=== PATIENT | male | born 1945 | race Caucasian/White ===

== ENCOUNTER → 2019-02-19 17:09 | Outpatient (CLI) | payer OTHER, SELFPAY ==
[2019-02-19 17:43] LABS: Absolute Lymphocyte Count 1.35 X10^3/ul (0.83-4.51); Absolute Neutrophil Count 5.8 X10^3/uL (2.0-7.7); Basophil# 0.02 X10^3/uL; Basophil% 0.2 % (0-1); Eosinophil# 0.32 X10^3/uL; Eosinophils% 3.8 % (0-5); Hematocrit 46.1 % (40-54); Lymphocyte # 1.35 X10^3/ul (4.0); Lymphocyte % 15.8 % (19-41); Mean Corp Hgb Conc 32.5 g/gl (32-36); Mean Corpuscular Hgb 29.6 pg (27.0-32.0); Mean Corpuscular Volume 90.9 fL (80-94); Mean Platelet Vol. 10.5 fl (6.2-12.0); Monocyte% 11.7 % (0-10); Neutrophil # 5.81 X10^3/uL (2.7-7.7); Neutrophil % 68.3 % (47-70); Platelet Count 276 K/mm3 (150-450); RBC Distribution Width CV 13.4 % (11.6-14.6); Red Blood Count 5.07 M/mm3 (4.6-6.2); White Blood Count 8.5 K/mm3 (4.4-11.0)
[2019-02-19 17:45] LABS: POSITIVE COUNT NO; POSITIVE DIFFERENTIAL NO; POSITIVE MORPHOLOGY NO
[2019-02-19 18:03] LABS: Vitamin D,25 Hydroxy 17.2 ng/mL (29.95-100.01)
[2019-02-19 18:13] LABS: ALB/GLOB Ratio 0.8 RATIO (0.9-2.4); AST(SGOT) 13 U/L (15-37); Alanine Aminotransfer ALT/SGPT 31 U/L (16-61); Albumin, Serum 3.5 g/dL (3.2-5.0); Alkaline Phosphatase 93 U/L (45-117); Anion Gap 6 (5-15); BUN 15 mg/dL (7-18); BUN/Creat Ratio 21.3 RATIO (10-20); Calcium,Total 9.4 mg/dL (8.5-10.1); Chloride 103 mmol/L (98-107); EST Glomerular Filtration Rate 116 mL/min (>60); Est Glom Filt Rate - Afr Amer 141 mL/min (>60); Globulin 4.2 g/dL (2.2-4.2); Glucose 82 mg/dL (74-106); Potassium 4.2 mmol/L (3.5-5.1); Protein, Total 7.7 g/dL (6.4-8.2); Sodium Level 138 mmol/L (136-145); Thyroid Stim Hormone (TSH) 1.63 uIU/mL (0.358-3.74)
== END ==
PROVIDERS: Visit Provider Family Medicine Geriatric Medicine
DX: I10 Essential (primary) hypertension (principal); E55.9 Vitamin D deficiency, unspecified
CPT/HCPCS: 36415; 80053; 82306; 84443; 85025

== ENCOUNTER → 2019-05-25 | Outpatient (CLI) | payer OTHER, SELFPAY ==
[2015-09-09 20:44] VITALS: BMI 27.0
[2019-05-25 17:43] LABS: Absolute Lymphocyte Count 1.41 X10^3/ul (0.83-4.51); Absolute Neutrophil Count 5.1 X10^3/uL (2.0-7.7); Basophil# 0.03 X10^3/uL; Basophil% 0.4 % (0-1); Eosinophil# 0.25 X10^3/uL; Eosinophils% 3.3 % (0-5); Lymphocyte # 1.41 X10^3/ul (4.0); Lymphocyte % 18.7 % (19-41); Mean Corp Hgb Conc 32.6 g/gl (32-36); Mean Corpuscular Hgb 29.8 pg (27.0-32.0); Mean Corpuscular Volume 91.3 fL (80-94); Mean Platelet Vol. 10.7 fl (6.2-12.0); Monocyte# 0.69 X10^3/uL; Monocyte% 9.2 % (0-10); Neutrophil # 5.14 X10^3/uL (2.7-7.7); Neutrophil % 68.3 % (47-70); Platelet Count 246 K/mm3 (150-450); RBC Distribution Width CV 13.7 % (11.6-14.6); RBC Distribution Width SD 44.8 fl (35.1-43.9); Red Blood Count 5.04 M/mm3 (4.6-6.2); White Blood Count 7.5 K/mm3 (4.4-11.0)
[2019-05-25 17:46] LABS: POSITIVE COUNT NO; POSITIVE DIFFERENTIAL NO; POSITIVE MORPHOLOGY NO
[2019-05-25 18:01] LABS: Vitamin D,25 Hydroxy 16.3 ng/mL (29.95-100.01)
[2019-05-25 18:02] LABS: ALB/GLOB Ratio 0.9 RATIO (0.9-2.4); AST(SGOT) 16 U/L (15-37); Alanine Aminotransfer ALT/SGPT 32 U/L (16-61); Albumin, Serum 3.6 g/dL (3.2-5.0); Alkaline Phosphatase 92 U/L (45-117); Anion Gap 4 (5-15); BUN 12 mg/dL (7-18); BUN/Creat Ratio 18.2 RATIO (10-20); Calcium,Total 8.9 mg/dL (8.5-10.1); Chloride 103 mmol/L (98-107); Creatinine, Serum 0.66 mg/dL (0.70-1.30); EST Glomerular Filtration Rate 125 mL/min (>60); Est Glom Filt Rate - Afr Amer 151 mL/min (>60); Glucose 87 mg/dL (74-106); Potassium 4.1 mmol/L (3.5-5.1); Protein, Total 7.6 g/dL (6.4-8.2); Sodium Level 136 mmol/L (136-145); Thyroid Stim Hormone (TSH) 1.21 uIU/mL (0.358-3.74)
== END | disposition home or self-care (01) ==
LOC: POLAB3 13:58
PROVIDERS: Visit Provider Family Medicine Geriatric Medicine
DX: I10 Essential (primary) hypertension (principal); E55.9 Vitamin D deficiency, unspecified
CPT/HCPCS: 36415; 80053; 82306; 84443; 85025

== ENCOUNTER → 2019-08-21 | Outpatient (CLI) | payer OTHER, SELFPAY ==
[2015-09-09 20:44] VITALS: BMI 27.0
[2019-08-21 12:25] LABS: Absolute Lymphocyte Count 1.12 X10^3/uL (0.83-4.51); Absolute Neutrophil Count 6.1 X10^3/uL (2.0-7.7); Basophil# 0.05 X10^3/uL; Basophil% 0.6 % (0-1); Eosinophil# 0.21 X10^3/uL; Eosinophils% 2.6 % (0-5); Hematocrit 45.2 % (40-54); Hemoglobin 14.3 g/dL (13.0-16.5); Lymphocyte # 1.12 X10^3/ul (4.0); Lymphocyte % 13.6 % (19-41); Mean Corp Hgb Conc 31.6 g/dL (32-36); Mean Corpuscular Hgb 30.4 pg (27.0-32.0); Mean Corpuscular Volume 96.2 fL (80-94); Mean Platelet Vol. 10.5 fl (6.2-12.0); Monocyte# 0.77 X10^3/uL; Monocyte% 9.4 % (0-10); NRBC Flagged by Analyzer 0 % (0-5); Neutrophil # 6.05 X10^3/uL (2.7-7.7); Neutrophil % 73.4 % (47-70); Platelet Count 272 K/mm3 (150-450); RBC Distribution Width CV 13.1 % (11.6-14.6); RBC Distribution Width SD 46.4 fl (35.1-43.9); White Blood Count 8.2 K/mm3 (4.4-11.0)
[2019-08-21 12:43] LABS: Vitamin D,25 Hydroxy 22.8 ng/mL (29.95-100.01)
[2019-08-21 12:54] LABS: ALB/GLOB Ratio 0.9 RATIO (0.9-2.4); AST(SGOT) 15 U/L (15-37); Alanine Aminotransfer ALT/SGPT 29 U/L (16-61); Albumin, Serum 3.6 g/dL (3.2-5.0); Alkaline Phosphatase 97 U/L (45-117); Anion Gap 5 (5-15); BUN 12 mg/dL (7-18); BUN/Creat Ratio 14.6 RATIO (10-20); Calcium,Total 8.8 mg/dL (8.5-10.1); Chloride 105 mmol/L (98-107); Creatinine, Serum 0.82 mg/dL (0.70-1.30); EST Glomerular Filtration Rate 97 mL/min (>60); Est Glom Filt Rate - Afr Amer 117 mL/min (>60); Globulin 3.8 g/dL (2.2-4.2); Glucose 104 mg/dL (74-106); Potassium 4.6 mmol/L (3.5-5.1); Protein, Total 7.4 g/dL (6.4-8.2); Sodium Level 140 mmol/L (136-145); Thyroid Stim Hormone (TSH) 1.25 uIU/mL (0.358-3.74)
== END | disposition home or self-care (01) ==
LOC: POLAB3 10:11
PROVIDERS: Visit Provider Family Medicine Geriatric Medicine
DX: E55.9 Vitamin D deficiency, unspecified (principal); I10 Essential (primary) hypertension
CPT/HCPCS: 36415; 80053; 82306; 84443; 85025

== ENCOUNTER → 2019-11-19 10:23 | Outpatient (CLI) | payer OTHER, SELFPAY ==
[2019-11-19 12:36] LABS: Absolute Lymphocyte Count 1.11 X10^3/uL (0.83-4.51); Basophil# 0.07 X10^3/uL; Basophil% 0.8 % (0-1); Eosinophil# 0.29 X10^3/uL; Eosinophils% 3.5 % (0-5); Hematocrit 47.7 % (40-54); Hemoglobin 15.2 g/dL (13.0-16.5); Lymphocyte # 1.11 X10^3/ul (4.0); Lymphocyte % 13.3 % (19-41); Mean Corp Hgb Conc 31.9 g/dL (32-36); Mean Corpuscular Hgb 30.1 pg (27.0-32.0); Mean Corpuscular Volume 94.5 fL (80-94); Mean Platelet Vol. 10.4 fl (6.2-12.0); Monocyte# 0.84 X10^3/uL; NRBC Flagged by Analyzer 0 % (0-5); Neutrophil # 6.04 X10^3/uL (2.7-7.7); Neutrophil % 72.2 % (47-70); Platelet Count 260 K/mm3 (150-450); RBC Distribution Width CV 12.6 % (11.6-14.6); RBC Distribution Width SD 43.5 fl (35.1-43.9); Red Blood Count 5.05 M/mm3 (4.6-6.2); White Blood Count 8.4 K/mm3 (4.4-11.0)
[2019-11-19 12:54] LABS: Vitamin D,25 Hydroxy 18.8 ng/mL (29.95-100.01)
[2019-11-19 13:04] LABS: ALB/GLOB Ratio 0.8 RATIO (0.9-2.4); AST(SGOT) 18 U/L (15-37); Alanine Aminotransfer ALT/SGPT 31 U/L (16-61); Albumin, Serum 3.6 g/dL (3.2-5.0); Alkaline Phosphatase 100 U/L (45-117); Anion Gap 2 (5-15); BUN 12 mg/dL (7-18); BUN/Creat Ratio 16.4 RATIO (10-20); Calcium,Total 8.9 mg/dL (8.5-10.1); Chloride 100 mmol/L (98-107); Creatinine, Serum 0.73 mg/dL (0.70-1.30); EST Glomerular Filtration Rate 111 mL/min (>60); Est Glom Filt Rate - Afr Amer 134 mL/min (>60); Globulin 4.3 g/dL (2.2-4.2); Glucose 98 mg/dL (74-106); Potassium 4.4 mmol/L (3.5-5.1); Protein, Total 7.9 g/dL (6.4-8.2); Sodium Level 135 mmol/L (136-145); Thyroid Stim Hormone (TSH) 1.31 uIU/mL (0.358-3.74)
== END ==
PROVIDERS: Visit Provider Family Medicine Geriatric Medicine
DX: I10 Essential (primary) hypertension (principal); E55.9 Vitamin D deficiency, unspecified
CPT/HCPCS: 36415; 80053; 82306; 84443; 85025

== ENCOUNTER → 2020-03-17 18:15 | Outpatient (CLI) | payer OTHER, SELFPAY ==
[2020-03-17 20:42] LABS: M R Staph aureus DNA By PCR Negative (Negative); Probe Check PASS; Specimen Processing Control PASS; Staph aureus DNA By PCR NEGATIVE (Negative)
== END ==
PROVIDERS: PCP Family Medicine Geriatric Medicine; Referring Provider Family Medicine Geriatric Medicine; Visit Provider Family Medicine Geriatric Medicine
DX: B95.62 Methicillin resistant Staphylococcus aureus infection as the cause of diseases classified elsewhere (principal)
CPT/HCPCS: 87070; 87205; 87640

== ENCOUNTER → 2020-04-04 09:53 | Outpatient (CLI) | payer OTHER, SELFPAY ==
--- NOTE | 2020-04-04 10:13 | US_ITS ---
STUDY: ABDOMINAL ULTRASOUND-PERIUMBILICAL REGION REASON FOR VISIT: Male, 74 years old ABDOMINAL ABSCESS INFERIOR TO UMBILICUS TECHNIQUE: Ultrasound evaluation of the right upper quadrant was performed with real-time and static schaeffer-scale imaging. TECHNICAL QUALITY: Adequate. COMPARISON: None. FINDINGS: There is thickening of the subcutaneous fat in the periumbilical region suggesting cellulitis. There is no abnormal fluid collection to suggest an abscess. US/Abdomen Limited IMPRESSION: There is thickening of the subcutaneous fat in the periumbilical region suggesting cellulitis. There is no abnormal fluid collection to suggest an abscess. Electronically Signed: Xiang Ware, at 12:19 EDT Tel , Service support ,
[2020-04-04 12:53] LABS: Erythrocyte Sedimentation Rate 18 mm/hr (0-20)
[2020-04-04 12:55] LABS: Absolute Lymphocyte Count 1.05 X10^3/uL (0.83-4.51); Absolute Neutrophil Count 5.8 X10^3/uL (2.0-7.7); Basophil# 0.06 X10^3/uL; Basophil% 0.8 % (0-1); Eosinophil# 0.19 X10^3/uL; Eosinophils% 2.5 % (0-5); Hematocrit 46.7 % (40-54); Hemoglobin 14.8 g/dL (13.0-16.5); Lymphocyte # 1.05 X10^3/ul (4.0); Lymphocyte % 13.5 % (19-41); Mean Corp Hgb Conc 31.7 g/dL (32-36); Mean Corpuscular Hgb 30.6 pg (27.0-32.0); Mean Corpuscular Volume 96.5 fL (80-94); Mean Platelet Vol. 10.2 fl (6.2-12.0); Monocyte# 0.62 X10^3/uL; NRBC Flagged by Analyzer 0 % (0-5); Neutrophil % 74.8 % (47-70); Platelet Count 298 K/mm3 (150-450); RBC Distribution Width CV 13.2 % (11.6-14.6); Red Blood Count 4.84 M/mm3 (4.6-6.2); White Blood Count 7.8 K/mm3 (4.4-11.0)
[2020-04-04 13:05] LABS: Anion Gap 8 (5-15); BUN 14 mg/dL (7-18); BUN/Creat Ratio 17.5 RATIO (10-20); Calcium,Total 9.4 mg/dL (8.5-10.1); Chloride 104 mmol/L (98-107); EST Glomerular Filtration Rate 100 mL/min (>60); Est Glom Filt Rate - Afr Amer 121 mL/min (>60); Glucose 98 mg/dL (74-106); Potassium 4.2 mmol/L (3.5-5.1); Sodium Level 138 mmol/L (136-145)
== END ==
PROVIDERS: PCP Family Medicine Geriatric Medicine; Visit Provider Family Medicine Geriatric Medicine
DX: L03.90 Cellulitis, unspecified (principal)
CPT/HCPCS: 36415; 76705; 80048; 85025; 85652; 86140

== ENCOUNTER → 2020-07-27 15:53 | Outpatient (CLI) | payer OTHER, SELFPAY ==
[2020-07-27 15:44] VITALS: BMI 29.4
[2020-07-27 16:37] LABS: Absolute Lymphocyte Count 1.45 X10^3/uL (0.83-4.51); Absolute Neutrophil Count 5.2 X10^3/uL (2.0-7.7); Basophil# 0.07 X10^3/uL; Basophil% 0.9 % (0-1); Eosinophil# 0.38 X10^3/uL; Eosinophils% 4.7 % (0-5); Hematocrit 44.2 % (40-54); Lymphocyte # 1.45 X10^3/ul (4.0); Lymphocyte % 17.9 % (19-41); Mean Corp Hgb Conc 31.7 g/dL (32-36); Mean Corpuscular Hgb 30.3 pg (27.0-32.0); Mean Corpuscular Volume 95.7 fL (80-94); Mean Platelet Vol. 10.1 fl (6.2-12.0); Monocyte# 0.98 X10^3/uL; Monocyte% 12.1 % (0-10); NRBC Flagged by Analyzer 0 % (0-5); Neutrophil # 5.23 X10^3/uL (2.7-7.7); Neutrophil % 64.3 % (47-70); Platelet Count 278 K/mm3 (150-450); RBC Distribution Width CV 13.5 % (11.6-14.6); RBC Distribution Width SD 47.7 fl (35.1-43.9); Red Blood Count 4.62 M/mm3 (4.6-6.2); White Blood Count 8.1 K/mm3 (4.4-11.0)
[2020-07-27 17:03] LABS: Anion Gap 4 (5-15); BUN 15 mg/dL (7-18); BUN/Creat Ratio 19.6 RATIO (10-20); Calcium,Total 9.5 mg/dL (8.5-10.1); Chloride 104 mmol/L (98-107); Creatinine, Serum 0.76 mg/dL (0.70-1.30); EST Glomerular Filtration Rate 105 mL/min (>60); Est Glom Filt Rate - Afr Amer 127 mL/min (>60); Glucose 97 mg/dL (74-106); Potassium 4.1 mmol/L (3.5-5.1); Sodium Level 138 mmol/L (136-145)
== END ==
PROVIDERS: PCP Family Medicine Geriatric Medicine; Referring Provider Internal Medicine Cardiovascular Disease; Visit Provider Internal Medicine Cardiovascular Disease
DX: I25.10 Atherosclerotic heart disease of native coronary artery without angina pectoris (principal)
CPT/HCPCS: 36415; 80048; 85025

== ENCOUNTER 2020-08-01 08:51 | Day surgery (SDC) | payer SELFPAY, OTHER ==
[2020-07-27 15:44] VITALS: BMI 29.4
[2020-07-28 11:24] VITALS: BMI 29.2
[2020-08-01] VITALS (14 sets, daily range): BP systolic 125–183; BP diastolic 64–97; PULSE 71–86; RESP 11–17; TEMP 37–37.1; O2SAT 95–98; BMI 29.3; BMI 29.4
--- NOTE | 2020-08-01 10:45 | EKG12_ITS ---
Test Reason : POST PCI Blood Pressure : / mmHG Vent. Rate : 079 BPM Atrial Rate : 079 BPM P-R Int : 186 ms QRS Dur : 092 ms QT Int : 420 ms P-R-T Axes : 068 060 071 degrees QTc Int : 481 ms Sinus rhythm with frequent Premature ventricular complexes in a pattern of bigeminy Nonspecific ST abnormality Prolonged QT Abnormal ECG No previous ECGs available Confirmed by NATALIIA BYERS, BARRY ([id number]), marketing editor ANDREW RAMON ([id number]) on 08/03/2020 11:38:20 AM Referred By: Barry Roberson Confirmed By:BARRY ROBERSON MD
--- NOTE | 2020-08-01 10:55 | CL.I_ITS ---
Patient Name: GAVINO NICHOLS Study Date: 08/01/2020 Performing: Orlando Fuller MD Ht: 70 inches 178 cm : 1945 Wt: 205.3 lbs 93 kg Age: 75 Gender: male BSA: 2.11 PROCEDURE(S) PERFORMED [id number] W OR WO PTCA, SINGLE CORONARY ARTERY CLINICAL PROFILE AND CO-MORBIDITIES Indications: Suspected CAD Heart Failure: None CONCLUSIONS Successful NANCY to ostial OM1 RECOMMENDATIONS Follow up with Dr. Karol CHAPIN Indefinitley Plavix for at least 12 months DESCRIPTION OF PROCEDURE The patient arrived to the procedure lab. The risks and benefits of the procedure as well as a full d escription of our services here and current unavailability of surgical backup were fully explained to the patient and/or their significant other prior to the catheterization. The Timeout was completed, verifying the correct patient and procedure. The patient's procedural site was prepped and draped in the usual fashion. Local anesthetic was given subcutaneously to right radial region with Lidocaine 2% Using a modified Seldinger technique,arterial access was obtained via the right radial artery, a 6Fr sheath was inserted. Left Coronary Artery selective angiography was performed in multiple views usin g a 5 Fr. 4.0 [place] catheter. Right Coronary Artery selective angiography was then performed in multi ple views using a 5 Fr. 4.0 [place] catheter. Left Ventriculography was performed in URENA projection usi ng a 5 Fr. Pigtail catheter. LV to AO pullback pressures were then recorded.The images were reviewed and options discussed. A decision was then made to proceed with an Intervention, IVUS o r other adjunct procedure. XB 3.0 Guide catheter was inserted and engaged into the LCA. Angiogram performed pre balloon dila tation. BMW Guide wire was advanced to the 1st OM. 2.0x12 emerge Balloon catheter was advanced across lesion in the first obtuse marginal, ostial. PTCA balloon inflated at 8 atms for 43 secs. Angiogram performed post balloon dilatation. 2.5 x 12 Synergy Drug Eluting stent was advanced across the lesion in the first obtuse marginal, ostial. 2.5 x 8 NC Euphora Balloon catheter was inserted post stent. A ngiogram performed post stent deployment. The arterial sheath was pulled and a TR Band was applied for hemostasis INTERVENTION INFORMATION LESION SITE: 1st OM (Ostial) Lesion Complexity: High/C, chronic total occlusion: No, lesion at bifurcation: Yes, thrombus present: No, lesion length: 8 mm, culprit lesion: Yes, Previously treated lesion: No Pre Stenosis: 90 % Pre intervention MATILDE flow: 3 PROCEDURE: Drug Eluting Stent with pre and post dilatation Post Stenosis: 0 % Post intervention MATILDE flow: 3 Lesion Devices: Cardinal 6 Fr XB3.0 100cm Guide Catheter Matthews .014 BMW [place] Straight 190cm Bogdan Sci EMERGE MR 2.00x12 BALLOON Bogdan Sci Synergy MR NANCY 2.50x12 Medtronic NC EUPHORA RX 2.5x08 BALLOON COMPLICATIONS No Complications PROCEDURE MEDICATIONS Fentanyl 50 mcg IV Versed 1 mg IV Oxygen: 2 L/min via nasal cannula Heparin diluted in 23cc Heparinized saline. Patient given 10cc IA of this solution. 08/01/2020 09:44: 30 Heparin 6000 unit(s) IV 08/01/2020 10:03:03 Verapamil 2.5mg, Ntg 100mcgs, 2000 units of Heparin diluted in 23cc Heparinized saline. Patient give n 10cc IA of this solution. 08/01/2020 09:44:30 SUMMARY OF HEMODYNAMIC DATA Time AIR REST ECG 09:12:55 AO 125/58 (83) SA 09:45:05 LV 113/0, 5 09:53:27 LV 102/4, 17 09:53:41 LV 104/2, 6 09:54:13 LVp 109/2, 11 09:54:19 AOp 119/65 (87) 09:54:24 AO 119/60 (84) 09:54:25 Signed By Orlando Fuller MD On 08/01/2020 10:53:51 Orlando Fuller MD
[2020-08-01] MEDS: 0.9% Normal Saline 1,000 ML 100 ML IV (11:00)
--- NOTE | 2020-08-01 12:40 | DCINST_ITS ---
Discharge Diet: Low fat/ Low Cholesterol Discharge Activity: Return to Normal Activity May shower in (days): 1 - No tub baths for 5 days May resume sexual activity in: 1-2 weeks Lifting Restrictions: Do not lift anything greater than 10 pounds for 3 days Call your doctor if your incision/area has: Continuous Slow Oozing, Sudden Increased Bleeding, Increased Pain/ Swelling, Increased Redness, Foul Smelling Discharge, Swelling at the incision site Call your doctor if you observe: Fever of 101 or Higher, Shortness of breath, Chest pain Remove Dressing in (days):: 1 Cleanse incision/area with: Soap & Water Allergies/Adverse Reactions: Allergies No Known Allergies Allergy (Verified 07/27/20 14:38) Medications to take at Discharge Lisinopril [Zestril] 10 mg PO DAILY 09/09/15 carvedilol 6.25 mg tablet 6.25 mg PO BID 07/27/20 citalopram 20 mg tablet 20 mg PO DAILY 07/27/20 clopidogrel 75 mg tablet 75 mg PO DAILY 07/27/20 memantine 10 mg tablet 10 mg PO BID tab 07/27/20 vit C,E,zinc,Qy-dtvhb-2-lutein-zeaxanthin 250 mg-2.5 mg-0.5 mg capsule 1 cap PO DAILY 07/27/20 Aspirin 81 mg PO DAILY 07/28/20 Primary Care Physician: Colin Crain Chi, MD [Primary Care Provider] - Test Results: Test results from this visit will be discussed in further detail at your follow- up appointment, if applicable. Please Follow Up With: Dr. Roberson When: 08/19/2020 at 9:15 AM Proposed Discharge Date: 08/02/20 Cardiac Rehabilitation Info Cardiac Rehabilitation Program Information: Cardiac Rehabilitation is important for patients like you who are recovering from a heart problem. Cardiac rehabilitation programs are recognized as integral to the continued care of the patient with coronary heart disease. The cardiac rehabilitation program is designed to optimize a patient's physical, psychological, and social functioning. Health resident care assistant work in cardiac rehabilitation programs and assist you with getting the treatments you need to get stronger and healthier - like exercise, healthy eating habits, and medications. Cardiac rehabilitation has been show to help people with heart problems live longer and have better life enjoyment than people who do not go to cardiac rehabilitation. Please contact the Cardiac Rehabilitation Program at [facility] at in two weeks if you have not heard from them.
--- NOTE | 2020-08-01 13:17 | CRPHASE1 ---
Patient Communication Former Patient:: Phase I PHII Cardiac Rehab Discussed with Patient:: Yes Guide to Cardiac Rehab Given to Patient:: Yes Cardiac Rehab Facility Choice List Given to Patient:: Yes Choice Program [facility] CR PHII:: Communication Given to CR Choice Program Other:: Communication Given to CR Refer Phase II Cardiac Rehab:: Yes Sessions:: 36 sessions - 3 days/wk, 12 weeks Choice Letter Given to Patient:: Yes Guide to Cardiac Rehab Given by ICU Staff Prior to Discharge: Yes Risk Factors/Lifestyle Smoking Status: Former smoker Hx Hypertension: Yes Hx Diabetes Mellitus Type 1: No Hx Diabetes Mellitus Type 2: No Hx Metabolic Disorders: No Hx Dyslipidemia: Yes Hx Obesity: No Post-Menopausal: No ETOH: No Caffeine: No Substance Abuse: No Family History: Family History (Last Reviewed 07/27/20 @ 15:[address] Barry Roberson MD) Brother Hypertension Cardiac Rehabilitation Info Cardiac Rehabilitation Program Information: Cardiac Rehabilitation is important for patients like you who are recovering from a heart problem. Cardiac rehabilitation programs are recognized as integral to the continued care of the patient with coronary heart disease. The cardiac rehabilitation program is designed to optimize a patient's physical, psychological, and social functioning. Health palliative care coordinator work in cardiac rehabilitation programs and assist you with getting the treatments you need to get stronger and healthier - like exercise, healthy eating habits, and medications. Cardiac rehabilitation has been show to help people with heart problems live longer and have better life enjoyment than people who do not go to cardiac rehabilitation. Please contact the Cardiac Rehabilitation Program at [facility] at in two weeks if you have not heard from them.
--- NOTE | 2020-08-01 13:19 | CRPH1.INSTRU ---
General Education CAD and cardiac anatomy and function:: Patient communicates acknowledgment, Family communicates acknowledgment Explanation of diagnoses and procedures:: Patient communicates acknowledgment, Family communicates acknowledgment Sign/Symptoms of CT:: Patient communicates acknowledgment, Family communicates acknowledgment Antiplatelet therapy: Patient communicates acknowledgment, Family communicates acknowledgment Proper use of NTG-SL: Patient communicates acknowledgment, Family communicates acknowledgment Emergency procedures and activation of EMS: Patient communicates acknowledgment, Family communicates acknowledgment Compliance of all prescribed medications: Patient communicates acknowledgment, Family communicates acknowledgment Smoking Recommendations Include:: Previous smoker; encourage continued cessation Dyslipidemia Patient Dyslipidemia Risk Factors Are:: Total Cholesterol, Triglycerides, HDL, LDL Recommendations Include:: Lipid profile provided, Reviewed NCEP/ATP guidelines, Therapeutic Lifestyle Change dietary guidelines Dyslipidemia Response Code:: Patient communicates acknowledgment, Family communicates acknowledgment Hypertension Recommendations Include:: Maintain BP <130/85, DASH dietary guidelines, Decrease/maintain normal body weight, Moderation of ETOH Hypertension:: Patient communicates acknowledgment, Family communicates acknowledgment Diabetes Patient Diabetes Risk Factors Are:: No documented hx of diabetes Sedentary Patient Sedentary Risk Factors Are:: Lack of regular exercise Recommendations Include:: Aerobic exercise 5-7 times/week for 20-30 minutes continuously, Benefits of regular exercise, Discussed home walking program, Monitored Outpatient Cardiac Rehab Sedentary Response Code:: Patient communicates acknowledgment, Family communicates acknowledgment Stress Patient Stress Risk Factors Are:: Patient denies stress as a risk factor
[2020-08-01] MEDS: amLODIPine 10 MG Tablet PO (18:49)
--- NOTE | 2020-08-01 19:52 | NURSING ---
bag of NS was not running when this RN came on to shift at 1900. unclear when NS was stopped by dayshift RN.
[2020-08-01] MEDS: Memantine Hydrochloride 10 MG Tablet PO (21:20)
[2020-08-01] MEDS: Carvedilol 6.25 MG Tablet PO (21:20)
[2020-08-02 03:00] VITALS: PULSE 73
[2020-08-02 03:15] VITALS: BP 137/84; PULSE 82; RESP 16; TEMP 36.8; O2SAT 96
[2020-08-02 06:51] LABS: Hematocrit 43.8 % (40-54); Hemoglobin 14.1 g/dL (13.0-16.5); Mean Corp Hgb Conc 32.2 g/dL (32-36); Mean Corpuscular Hgb 30.1 pg (27.0-32.0); Mean Corpuscular Volume 93.4 fL (80-94); Mean Platelet Vol. 9.8 fl (6.2-12.0); Platelet Count 240 K/mm3 (150-450); RBC Distribution Width CV 13.4 % (11.6-14.6); RBC Distribution Width SD 45.8 fl (35.1-43.9); Red Blood Count 4.69 M/mm3 (4.6-6.2); White Blood Count 8.3 K/mm3 (4.4-11.0)
[2020-08-02 07:17] LABS: ALB/GLOB Ratio 0.8 RATIO (0.9-2.4); AST(SGOT) 17 U/L (15-37); Alanine Aminotransfer ALT/SGPT 29 U/L (16-61); Albumin, Serum 3.4 g/dL (3.2-5.0); Alkaline Phosphatase 82 U/L (45-117); Anion Gap 5 (5-15); BUN 10 mg/dL (7-18); BUN/Creat Ratio 16.8 RATIO (10-20); Chloride 103 mmol/L (98-107); EST Glomerular Filtration Rate 141 mL/min (>60); Est Glom Filt Rate - Afr Amer 170 mL/min (>60); Estimated Creatinine Clearance 64.89 ml/min; Glucose 112 mg/dL (74-106); Potassium 3.9 mmol/L (3.5-5.1); Protein, Total 7.4 g/dL (6.4-8.2); Sodium Level 137 mmol/L (136-145)
--- NOTE | 2020-08-02 07:28 | PCM.PN.CARD ---
Subjectve: Patient seen and evaluated. Appears to be doing well with no complaints Objective: Vital Signs Temp Pulse Resp BP Pulse Ox 98.2 F 82 16 137/84 H 96 08/02/20 03:15 08/02/20 03:15 08/02/20 03:15 08/02/20 03:15 08/02/20 03:15 Oxygen Delivery Method Room Air Weight: 204 lb 12.8 oz Body Mass Index (BMI) 29.3 Intake and Output for Last 24 Hours 07/31/20 08/01/20 08/02/20 23:59 23:59 23:59 Intake Total 1270 / 1270 100 / 100 Output Total 250 / 250 Balance 1020 / 1020 100 / 100 General: Awake, Alert, Oriented x 3 HEENT: PERRL, EOMI, Sclera Non Icteric Neck: Supple, Good ROM, No Lymph Node Enlargement Lungs: Clear to auscultation Cardiovascular: Regular Rhythm, Normal S1, Normal S2, No Murmurs, No Rubs, No Gallops Vascular: No Carotid Bruits, Normal Femoral Pulses, Normal Radial Pulses, Normal Dorsalis Pedal Pulse, Normal Posterior Tibial Pulses Abdomen: Bowel Sounds Present, Soft, Non Tender, No HSM, No Organomegaly Extremities: No Cyanosis, No Clubbing, No edema Skin: No Rashes Lymphatic: No Lymph Node Enlargement Neurological: No Focal Motor or Sensory Deficit Psych/Mental Status: Appropriate 08/02/20 06:30: WBC 8.3, RBC 4.69, Hgb 14.1, Hct 43.8, MCV 93.4, MCH 30.1, MCHC 32.2, Plt Count 240, MPV 9.8 08/02/20 06:30: Sodium 137, Potassium 3.9, Chloride 103, Carbon Dioxide 29.0, Anion Gap 5, BUN 10, Creatinine 0.60 L, Est GFR (MDRD) Af Amer 170, Est GFR (MDRD) Non-Af 141, BUN/Creatinine Ratio 16.8, Glucose 112 H, Calcium 9.0, Total Bilirubin 0.60 Rhythm: EKG: ECHO: Stress Test: Cardiac Cath: PCI: CT Surgery: Holter monitor: EPS: PPM: CXR: Chest CT Scan: Medical Necessity - Tobacco Use Smoking Status: Former smoker Assessment/Plan 1. Patient is status post angioplasty and stenting of the first obtuse marginal branch successfully. Patient appears to be doing well with no chest pain. Patient will be discharged for outpatient follow-up.
[2020-08-02 07:30] VITALS: PULSE 77
[2020-08-02 07:45] VITALS: O2SAT 96
[2020-08-02 08:02] VITALS: BP 152/68; PULSE 75; RESP 16; TEMP 36.8; O2SAT 95
[2020-08-02] MEDS: Citalopram 20 MG Tablet PO (08:09)
[2020-08-02] MEDS: Memantine Hydrochloride 10 MG Tablet PO (08:09)
[2020-08-02] MEDS: Clopidogrel Bisulfate 75 MG Tablet PO (08:09)
[2020-08-02] MEDS: Aspirin 81 MG TAB.CHEW PO (08:09)
[2020-08-02] MEDS: Lisinopril 10 MG Tablet PO (08:09)
[2020-08-02] MEDS: Carvedilol 6.25 MG Tablet PO (08:09)
--- NOTE | 2020-08-02 10:00 | EKG12_ITS ---
Test Reason : AM EKG Blood Pressure : / mmHG Vent. Rate : 077 BPM Atrial Rate : 077 BPM P-R Int : 174 ms QRS Dur : 098 ms QT Int : 428 ms P-R-T Axes : 073 072 075 degrees QTc Int : 484 ms Sinus rhythm with frequent Premature ventricular complexes in a pattern of bigeminy Otherwise normal ECG Confirmed by VISHNU BYERS, RICARDO ([id number]), story editor ANDREW RAMON ([id number]) on 08/04/2020 1:11:15 PM Referred By: Barry Roberson Confirmed By:RICARDO MARES MD
--- NOTE | 2020-08-05 08:29 | PCM.PN.BLA ---
Progress Note Addendum: Patient will be started on a statin medication on an outpatient basis.
--- NOTE | 2020-08-05 08:42 | CL.D_ITS ---
Patient Name: GAVINO NICHOLS Study Date: 08/01/2020 Performing: Barry Roberson MD Ht: 70 inches 178 cm : 1945 Wt: 205.3 lbs 93 kg Age: 75 Gender: male BSA: 2.11 PROCEDURE(S) PERFORMED HB95-IRN/COR/LV [id number] W OR WO PTCA, SINGLE CORONARY ARTERY CLINICAL PROFILE AND INDICATIONS Indications: Suspected CAD Heart Failure: None Stress/Imaging Stress/Image Study Performed: No Angina Classification Anginal Classification w/in 2 Weeks: CCS I CAD Presentations: Unstable angina. CONCLUSIONS High grade OM1 stenosis. the RCA is not significantly stenosed RECOMMENDATIONS Referred for immediate PCI DESCRIPTION OF PROCEDURE The patient arrived to the procedure lab. The risks and benefits of the procedure as well as a full d escription of our services here and current unavailability of surgical backup were fully explained to the patient and/or their significant other prior to the catheterization. The Timeout was completed, verifying the correct patient and procedure. The patient's procedural site was prepped and draped in the usual fashion. Local anesthetic was given subcutaneously to right radial region with Lidocaine 2% . Using a modified Seldinger technique, arterial access was obtained via the right radial artery, a 6 Fr sheath was inserted. Left Coronary Artery selective angiography was performed in multiple views u sing a 5 Fr. 4.0 [place] catheter. Right Coronary Artery selective angiography was then performed in mu ltiple views using a 5 Fr. 4.0 [place] catheter. Left Ventriculography was performed in URENA projection using a 5 Fr. Pigtail catheter. LV to AO pullback pressures were then recorded.The arterial sheath was pulled and a TR Band was applied for hemostasis CORONARY ANGIOGRAPHY DOMINANCE: Right Dominant LEFT HEART ASSESSMENT Left Ventricular Ejection Fraction: by LV Gram 60 % Normal LV wall motion Normal Left Ventricular systolic function LEFT MAIN: No significant disease noted LEFT ANTERIOR DESCENDING ARTERY: Mild calcification, Mild luminal irregularities less than 30% CIRCUMFLEX ARTERY: OM 1: Ostial - 80 % Stenosis RIGHT CORONARY ARTERY: Mild luminal irregularities less than 30% OSTIAL RCA: 40 % Stenosis COMPLICATIONS No Complications PROCEDURE MEDICATIONS Fentanyl 50 mcg IV Versed 1 mg IV Oxygen: 2 L/min via nasal cannula Heparin diluted in 23cc Heparinized saline. Patient given 10cc IA of this solution. 08/01/2020 09:44: 30 Heparin 6000 unit(s) IV 08/01/2020 10:03:03 Verapamil 2.5mg, Ntg 100mcgs, 2000 units of Heparin diluted in 23cc Heparinized saline. Patient give n 10cc IA of this solution. 08/01/2020 09:44:30 SUMMARY OF HEMODYNAMIC DATA Time AIR REST ECG 09:12:55 AO 125/58 (83) SA 09:45:05 LV 113/0, 5 09:53:27 LV 102/4, 17 09:53:41 LV 104/2, 6 09:54:13 LVp 109/2, 11 09:54:19 AOp 119/65 (87) 09:54:24 AO 119/60 (84) 09:54:25 Signed By Barry Roberson MD On 08/05/2020 08:41:31 Barry Roberson MD
== END 2020-08-02 07:27 | disposition home or self-care (01) ==
LOC: CLSP 10:13 → PCU 08-02 06:33
PROVIDERS: Specialist; PCP Family Medicine Geriatric Medicine; Referring Provider Internal Medicine Cardiovascular Disease; Visit Provider Internal Medicine Cardiovascular Disease
DX: I25.10 Atherosclerotic heart disease of native coronary artery without angina pectoris (principal); E78.5 Hyperlipidemia, unspecified; I10 Essential (primary) hypertension; J45.909 Unspecified asthma, uncomplicated; F03.90 Unspecified dementia, unspecified severity, without behavioral disturbance, psychotic disturbance, mood disturbance, and anxiety; I47.2 Ventricular tachycardia; K21.9 Gastro-esophageal reflux disease without esophagitis; E85.4 Organ-limited amyloidosis; I43 Cardiomyopathy in diseases classified elsewhere; I49.49 Other premature depolarization; Z87.891 Personal history of nicotine dependence; Z79.899 Other long term (current) drug therapy; Z79.02 Long term (current) use of antithrombotics/antiplatelets
CPT/HCPCS: 36415; 80053; 85027; 92928; 93005; 93458; 99152; 99153; J7030; J7040; Q9967; C1725; C1769; C1887; C1894; C9600

== ENCOUNTER → 2020-08-23 10:19 | Outpatient (CLI) | payer OTHER, SELFPAY ==
[2020-08-19 09:18] VITALS: BMI 29.4
[2020-08-23 12:31] LABS: Absolute Lymphocyte Count 1.29 X10^3/uL (0.83-4.51); Absolute Neutrophil Count 5.5 X10^3/uL (2.0-7.7); Basophil# 0.04 X10^3/uL; Basophil% 0.5 % (0-1); Eosinophil# 0.31 X10^3/uL; Eosinophils% 3.9 % (0-5); Hematocrit 45.7 % (40-54); Hemoglobin 14.4 g/dL (13.0-16.5); Lymphocyte # 1.29 X10^3/ul (4.0); Lymphocyte % 16.2 % (19-41); Mean Corp Hgb Conc 31.5 g/dL (32-36); Mean Corpuscular Hgb 30.2 pg (27.0-32.0); Mean Corpuscular Volume 95.8 fL (80-94); Mean Platelet Vol. 10.6 fl (6.2-12.0); NRBC Flagged by Analyzer 0 % (0-5); Neutrophil # 5.52 X10^3/uL (2.7-7.7); Neutrophil % 69.1 % (47-70); Platelet Count 251 K/mm3 (150-450); RBC Distribution Width CV 13.3 % (11.6-14.6); RBC Distribution Width SD 47.6 fl (35.1-43.9); Red Blood Count 4.77 M/mm3 (4.6-6.2)
[2020-08-23 13:10] LABS: ALB/GLOB Ratio 0.8 RATIO (0.9-2.4); AST(SGOT) 17 U/L (15-37); Alanine Aminotransfer ALT/SGPT 28 U/L (16-61); Albumin, Serum 3.4 g/dL (3.2-5.0); Alkaline Phosphatase 79 U/L (45-117); Anion Gap 2 (5-15); BUN 10 mg/dL (7-18); BUN/Creat Ratio 13.6 RATIO (10-20); Calcium,Total 9.5 mg/dL (8.5-10.1); Chloride 103 mmol/L (98-107); Creatinine, Serum 0.74 mg/dL (0.70-1.30); EST Glomerular Filtration Rate 110 mL/min (>60); Est Glom Filt Rate - Afr Amer 133 mL/min (>60); Globulin 4.2 g/dL (2.2-4.2); Glucose 100 mg/dL (74-106); Potassium 4.2 mmol/L (3.5-5.1); Protein, Total 7.6 g/dL (6.4-8.2); Sodium Level 138 mmol/L (136-145); Thyroid Stim Hormone (TSH) 1.46 uIU/mL (0.358-3.74)
[2020-08-24 08:18] LABS: Vitamin D,25 Hydroxy 21.6 ng/mL
== END ==
PROVIDERS: PCP Family Medicine Geriatric Medicine; Visit Provider Family Medicine Geriatric Medicine
DX: E55.9 Vitamin D deficiency, unspecified (principal); I10 Essential (primary) hypertension
CPT/HCPCS: 36415; 80053; 82306; 84443; 85025

== ENCOUNTER → 2020-09-14 09:16 | Outpatient (CLI) | payer OTHER, SELFPAY ==
[2020-08-19 09:18] VITALS: BMI 29.4
--- NOTE | 2020-09-14 09:21 | NM_ITS ---
CLINICAL: 75-year-old male with reported history of chronic heart failure of unknown etiology. 99m Tc PYROPHOSPHATE CARDIAC AMYLOID EXAMINATION COMPARISON: None available FINDINGS: Following the intravenous administration of 21.7 mCi of 99m Tc pyrophosphate, anterior acquisitions of the thorax reveal: 1. There is minimal tracer distribution identified in the region of the left ventricular myocardium-cardiac blood pool. The heart to contralateral chest wall ratio of generated count statistics is 0.93 utilizing circular regions of interest and 1.11 implementing ovoid regions of interest, (Abnormal: > 1.5). MS/PYP [employer] Cardiac Amylio IMPRESSION: 1. NEGATIVE EXAMINATION. There is no definitive scintigraphic qualitative and/or quantitative evidence of cardiac amyloidosis. Electronically Signed: Dallin Dawson DO at 13:50 EDT Tel , Service support ,
== END ==
PROVIDERS: PCP Family Medicine Geriatric Medicine; Referring Provider Internal Medicine Cardiovascular Disease; Visit Provider Internal Medicine Cardiovascular Disease
DX: E85.4 Organ-limited amyloidosis (principal)
CPT/HCPCS: 78800; 78803; A9538

== ENCOUNTER → 2020-10-18 16:08 | Outpatient (CLI) | payer SELFPAY, OTHER ==
[2020-08-19 09:18] VITALS: BMI 29.4
--- NOTE | 2020-10-18 16:11 | RAD_ITS ---
STUDY: X-RAY CHEST REASON FOR EXAM: Male, 75 years old. shortness of breath TECHNIQUE: Frontal and lateral views of the chest. COMPARISON: None. FINDINGS: The lungs are hyperexpanded. There are coarsened interstitial markings suggestive of mild chronic fibrosis. Possible 1 cm nodule in the right lung base. CT scanning recommended. No gross focal infiltrates. No gross effusions. Normal size heart. Normal mediastinum and joselo. Normal visualized pulmonary arteries. There is atherosclerotic calcification of the aortic arch with tortuosity. Normal visualized thoracic spine. Normal visualized ribs, clavicles, and shoulders. There is no demonstrated abnormality of the visualized soft tissue structures of the upper abdomen. RAD/Chest PA and Lateral IMPRESSION: Probable COPD with mild fibrotic changes. Possible nodule in the right lung base, CT scan recommended. Electronically Signed: Nishant Fajardo MD at 18:21 EST , Service support ,
--- NOTE | 2020-10-18 16:15 | RAD_ITS ---
STUDY: X-RAY - ABDOMEN/PELVIS REASON FOR EXAM: Male, 75 years old. abdomen pain TECHNIQUE: Single AP view of the abdomen / pelvis. COMPARISON: None. FINDINGS: Normal visualized lung bases. There is an unremarkable bowel gas pattern. There is no demonstrated free abdominal air. The visualized liver, spleen and kidneys are grossly normal in size and morphology. Numerous peritoneal tacks are seen of the pelvic wall consistent with repair of inguinal hernias. Normal visualized osseous structures. RAD/Abdomen Single View IMPRESSION: No definite acute or significant abnormality seen. Electronically Signed: Nishant Fajardo MD at 18:11 EST , Service support ,
[2020-10-18 17:11] LABS: Basophil# 0.06 X10^3/uL; Basophil% 0.7 % (0-1); Eosinophil# 0.33 X10^3/uL; Eosinophils% 3.8 % (0-5); Hematocrit 45.1 % (40-54); Hemoglobin 14.4 g/dL (13.0-16.5); Mean Corp Hgb Conc 31.9 g/dL (32-36); Mean Corpuscular Hgb 30.7 pg (27.0-32.0); Mean Corpuscular Volume 96.2 fL (80-94); Mean Platelet Vol. 10.4 fl (6.2-12.0); Monocyte# 0.92 X10^3/uL; Monocyte% 10.7 % (0-10); NRBC Flagged by Analyzer 0 % (0-5); Neutrophil # 6.04 X10^3/uL (2.7-7.7); Neutrophil % 70.5 % (47-70); Platelet Count 251 K/mm3 (150-450); RBC Distribution Width CV 13.9 % (11.6-14.6); RBC Distribution Width SD 48.6 fl (35.1-43.9); Red Blood Count 4.69 M/mm3 (4.6-6.2); White Blood Count 8.6 K/mm3 (4.4-11.0)
[2020-10-18 17:22] LABS: ALB/GLOB Ratio 0.9 RATIO (0.9-2.4); AST(SGOT) 16 U/L (15-37); Alanine Aminotransfer ALT/SGPT 42 U/L (16-61); Albumin, Serum 3.5 g/dL (3.2-5.0); Alkaline Phosphatase 104 U/L (45-117); Anion Gap 3 (5-15); BUN 14 mg/dL (7-18); BUN/Creat Ratio 17.2 RATIO (10-20); Calcium,Total 8.9 mg/dL (8.5-10.1); Chloride 106 mmol/L (98-107); Creatinine, Serum 0.82 mg/dL (0.70-1.30); EST Glomerular Filtration Rate 98 mL/min (>60); Est Glom Filt Rate - Afr Amer 118 mL/min (>60); Globulin 3.7 g/dL (2.2-4.2); Glucose 102 mg/dL (74-106); Potassium 4.4 mmol/L (3.5-5.1); Protein, Total 7.2 g/dL (6.4-8.2); Sodium Level 140 mmol/L (136-145)
[2020-10-18 17:33] LABS: BNP,B-Type NATRIURETIC PEPTIDE 421.8 pg/mL (0-100)
[2020-10-18 18:17] LABS: D-Dimer Quantitative (DVT/PE) 8.95 FEU/ug/m (0.27-0.49)
== END ==
LOC: POLAB3 16:08 → RAD 16:10
PROVIDERS: PCP Family Medicine Geriatric Medicine; Referring Provider Family Medicine Geriatric Medicine; Visit Provider Family Medicine Geriatric Medicine
DX: R06.02 Shortness of breath (principal); R60.9 Edema, unspecified; R63.8 Other symptoms and signs concerning food and fluid intake; R10.9 Unspecified abdominal pain
CPT/HCPCS: 36415; 71046; 74018; 80053; 83880; 85025; 85379

== ENCOUNTER → 2020-10-19 09:48 | Outpatient (CLI) | payer SELFPAY, OTHER ==
[2020-08-19 09:18] VITALS: BMI 29.4
--- NOTE | 2020-10-19 09:53 | VDLE_ITS ---
Reason For Study: Edema RIGHT LEFT GSV is normal. GSV is normal. CFV is compressible, spontaneous, phasic, CFV is compressible, spontaneous, phasic, competent and demonstrates normal competent, and demonstrates normal augmentation. augmentation. FV is compressible, spontaneous, phasic, FV is compressible, spontaneous, phasic, competent and demonstrates normal competent and demonstrates normal augmentation. augmentation. POP V is compressible, spontaneous, phasic, POP V is compressible, spontaneous, phasic, competent and demonstrates normal competent and demonstrates normal augmentation. augmentation. T/P Trunk is compressible. T/P Trunk is compressible. PTV is compressible. PTV is compressible. RT PerV is compressible. LT PerV is compressible. Procedure This is a venous duplex using B-mode, color flow and spectral Doppler. Exam performed in department. A preliminary report was called and/or faxed to [facility]. Interpretation Summary Deep veins of the lower extremities are bilaterally patent and compressible segmentally. There is no evidence of deep vein thrombosis on either side. Valvular competence appears intact within the proximal deep venous systems bilaterally. The great saphenous veins appear bilaterally patent and compressible segmentally. Ordering Physician: Colin Crain Referring Physician: Colin Crain Chi Performed By: Sharon Guerra RVT
--- NOTE | 2020-10-19 10:20 | CT_ITS ---
STUDY: CTA CHEST REASON FOR EXAM: Male, 75 years old. Elevated D-dimer, bilateral lower extremity edema (worse on left), SOB, hx clots. RADIATION DOSAGE (If Supplied By Facility): CTDIvol = ( 11.44 ) mGy, DLP = ( 454.70 ) mGycm TECHNIQUE: The examination was performed with the intravenous administration of IV 100mL Isovue-370. Post-processing of the angiographic images was performed, with multiplanar reformation and 3D reconstruction. Individualized dose optimization techniques were used for this CT. COMPARISON: None. FINDINGS: Normal enhancement of the main pulmonary artery and right and left pulmonary arteries. Normal enhancement of the bilateral peripheral pulmonary arteries. There is no demonstrated pulmonary embolism. There is atherosclerotic calcification of the aortic arch with tortuosity. There is no demonstrated aortic dissection. Normal heart and pericardium. There are visualized mediastinal lymph nodes, which are within normal size limits, and with normal morphology. Normal hilar regions. Normal visualized trachea and bronchi. Hyperinflation. Mild degree of emphysematous changes slightly more prominent in the upper lobes. Minimal increased markings in the lateral peripheral aspect of the right upper lobe abutting the right minor fissure. This may represent a focal area of scarring. Normal pleura. Normal chest wall structures. There are degenerative changes of thoracic spine. Normal visualized upper abdomen. CT/CTA Chest W/WO Contrast IMPRESSION: No evidence of pulmonary embolism. Mild degree of emphysematous changes and mild scarring in the peripheral aspect of the right upper lobe abutting the right minor fissure. Electronically Signed: Austen Gallo, at 11:05 EST , Service support ,
== END ==
PROVIDERS: PCP Family Medicine Geriatric Medicine; Referring Provider Family Medicine Geriatric Medicine; Visit Provider Family Medicine Geriatric Medicine
DX: R60.9 Edema, unspecified (principal); R79.9 Abnormal finding of blood chemistry, unspecified; R60.0 Localized edema
CPT/HCPCS: 71275; 93970; Q9967

== ENCOUNTER → 2020-10-27 10:48 | Outpatient (CLI) | payer OTHER, SELFPAY ==
[2020-08-19 09:18] VITALS: BMI 29.4
[2020-10-27 12:26] LABS: Absolute Lymphocyte Count 1.18 X10^3/uL (0.83-4.51); Absolute Neutrophil Count 4.8 X10^3/uL (2.0-7.7); Basophil# 0.04 X10^3/uL; Basophil% 0.6 % (0-1); Eosinophil# 0.31 X10^3/uL; Eosinophils% 4.4 % (0-5); Hematocrit 39.6 % (40-54); Hemoglobin 12.3 g/dL (13.0-16.5); Lymphocyte # 1.18 X10^3/ul (4.0); Lymphocyte % 16.6 % (19-41); Mean Corp Hgb Conc 31.1 g/dL (32-36); Mean Corpuscular Hgb 29.9 pg (27.0-32.0); Mean Corpuscular Volume 96.1 fL (80-94); Mean Platelet Vol. 10.6 fl (6.2-12.0); Monocyte# 0.74 X10^3/uL; Monocyte% 10.4 % (0-10); NRBC Flagged by Analyzer 0 % (0-5); Neutrophil # 4.81 X10^3/uL (2.7-7.7); Neutrophil % 67.9 % (47-70); Platelet Count 238 K/mm3 (150-450); RBC Distribution Width CV 13.8 % (11.6-14.6); RBC Distribution Width SD 49.1 fl (35.1-43.9); Red Blood Count 4.12 M/mm3 (4.6-6.2); White Blood Count 7.1 K/mm3 (4.4-11.0)
[2020-10-27 12:42] LABS: Anion Gap 3 (5-15); BUN 13 mg/dL (7-18); Calcium,Total 8.4 mg/dL (8.5-10.1); Chloride 103 mmol/L (98-107); Creatinine, Serum 0.65 mg/dL (0.70-1.30); EST Glomerular Filtration Rate 127 mL/min (>60); Est Glom Filt Rate - Afr Amer 153 mL/min (>60); Glucose 107 mg/dL (74-106); Potassium 4.3 mmol/L (3.5-5.1); Sodium Level 138 mmol/L (136-145)
[2020-10-27 13:04] LABS: BNP,B-Type NATRIURETIC PEPTIDE 377.3 pg/mL (0-100)
== END ==
PROVIDERS: PCP Family Medicine Geriatric Medicine; Visit Provider Family Medicine Geriatric Medicine
DX: I50.9 Heart failure, unspecified (principal)
CPT/HCPCS: 36415; 80048; 83880; 85025

== ENCOUNTER → 2020-11-03 11:18 | Outpatient (CLI) | payer OTHER, SELFPAY ==
[2020-08-19 09:18] VITALS: BMI 29.4
[2020-11-03 13:27] LABS: Anion Gap 5 (5-15); BUN 21 mg/dL (7-18); BUN/Creat Ratio 25.3 RATIO (10-20); Calcium,Total 9.1 mg/dL (8.5-10.1); Chloride 102 mmol/L (98-107); Creatinine, Serum 0.83 mg/dL (0.70-1.30); EST Glomerular Filtration Rate 96 mL/min (>60); Est Glom Filt Rate - Afr Amer 116 mL/min (>60); Glucose 87 mg/dL (74-106); Potassium 4.3 mmol/L (3.5-5.1); Sodium Level 140 mmol/L (136-145)
== END ==
PROVIDERS: PCP Family Medicine Geriatric Medicine; Visit Provider Family Medicine Geriatric Medicine
DX: I50.9 Heart failure, unspecified (principal)
CPT/HCPCS: 36415; 80048

== ENCOUNTER → 2020-11-21 10:48 | Outpatient (CLI) | payer OTHER, SELFPAY ==
[2020-08-19 09:18] VITALS: BMI 29.4
== END ==
PROVIDERS: PCP Family Medicine Geriatric Medicine; Referring Provider Nurse Practitioner Family; Visit Provider Nurse Practitioner Family
DX: E85.4 Organ-limited amyloidosis (principal); I43 Cardiomyopathy in diseases classified elsewhere; I47.2 Ventricular tachycardia; R00.1 Bradycardia, unspecified; Z95.5 Presence of coronary angioplasty implant and graft
CPT/HCPCS: 93225; 93226

== ENCOUNTER → 2021-02-27 09:36 | Outpatient (CLI) | payer OTHER, SELFPAY ==
[2020-12-22 15:51] VITALS: BMI 30.4
[2021-02-27 12:29] LABS: Absolute Lymphocyte Count 0.95 X10^3/uL (0.83-4.51); Absolute Neutrophil Count 5.5 X10^3/uL (2.0-7.7); Basophil# 0.04 X10^3/uL; Basophil% 0.6 % (0-1); Eosinophil# 0.18 X10^3/uL; Eosinophils% 2.5 % (0-5); Hematocrit 45.2 % (40-54); Lymphocyte # 0.95 X10^3/ul (4.0); Lymphocyte % 13.1 % (19-41); Mean Corpuscular Hgb 30.2 pg (27.0-32.0); Mean Corpuscular Volume 97.6 fL (80-94); Mean Platelet Vol. 10.4 fl (6.2-12.0); Monocyte# 0.59 X10^3/uL; Monocyte% 8.1 % (0-10); NRBC Flagged by Analyzer 0 % (0-5); Neutrophil # 5.48 X10^3/uL (2.7-7.7); Neutrophil % 75.4 % (47-70); Platelet Count 248 K/mm3 (150-450); RBC Distribution Width CV 13.2 % (11.6-14.6); Red Blood Count 4.63 M/mm3 (4.6-6.2); White Blood Count 7.3 K/mm3 (4.4-11.0)
[2021-02-27 12:49] LABS: ALB/GLOB Ratio 0.9 RATIO (0.9-2.4); AST(SGOT) 17 U/L (15-37); Alanine Aminotransfer ALT/SGPT 40 U/L (16-61); Albumin, Serum 3.6 g/dL (3.2-5.0); Alkaline Phosphatase 117 U/L (45-117); Anion Gap 5 (5-15); BUN 12 mg/dL (7-18); BUN/Creat Ratio 15.1 RATIO (10-20); Calcium,Total 8.9 mg/dL (8.5-10.1); Chloride 102 mmol/L (98-107); Creatinine, Serum 0.79 mg/dL (0.70-1.30); EST Glomerular Filtration Rate 101 mL/min (>60); Est Glom Filt Rate - Afr Amer 122 mL/min (>60); Globulin 4.1 g/dL (2.2-4.2); Glucose 143 mg/dL (74-106); Potassium 3.9 mmol/L (3.5-5.1); Protein, Total 7.7 g/dL (6.4-8.2); Sodium Level 138 mmol/L (136-145)
[2021-02-27 13:05] LABS: Vitamin D,25 Hydroxy 16.3 ng/mL
== END ==
PROVIDERS: PCP Family Medicine Geriatric Medicine; Visit Provider Family Medicine Geriatric Medicine
DX: E55.9 Vitamin D deficiency, unspecified (principal); I10 Essential (primary) hypertension
CPT/HCPCS: 36415; 80053; 82306; 84443; 85025

== ENCOUNTER → 2021-05-05 16:35 | Outpatient (CLI) | payer OTHER, SELFPAY ==
[2021-05-05 15:32] VITALS: BMI 30.8
[2021-05-05 17:59] LABS: Anion Gap 5 (5-15); BUN 16 mg/dL (7-18); BUN/Creat Ratio 19.9 RATIO (10-20); Calcium,Total 8.8 mg/dL (8.5-10.1); Chloride 101 mmol/L (98-107); Creatinine, Serum 0.81 mg/dL (0.70-1.30); EST Glomerular Filtration Rate 99 mL/min (>60); Est Glom Filt Rate - Afr Amer 120 mL/min (>60); Glucose 77 mg/dL (74-106); Sodium Level 140 mmol/L (136-145)
[2021-05-05 18:06] LABS: BNP,B-Type NATRIURETIC PEPTIDE 30.6 pg/mL (0-100)
== END ==
PROVIDERS: PCP Family Medicine Geriatric Medicine; Referring Provider Nurse Practitioner Family; Visit Provider Nurse Practitioner Family
DX: R06.00 Dyspnea, unspecified (principal)
CPT/HCPCS: 36415; 80048; 83880

== ENCOUNTER → 2021-05-23 08:55 | Outpatient (CLI) | payer OTHER, SELFPAY ==
[2021-05-05 15:32] VITALS: BMI 30.8
== END ==
PROVIDERS: PCP Family Medicine Geriatric Medicine; Referring Provider Nurse Practitioner Family; Visit Provider Nurse Practitioner Family
DX: I49.49 Other premature depolarization (principal); I25.10 Atherosclerotic heart disease of native coronary artery without angina pectoris; I47.2 Ventricular tachycardia; Z95.5 Presence of coronary angioplasty implant and graft
CPT/HCPCS: 93225; 93226

== ENCOUNTER → 2021-10-23 14:47 | Outpatient (CLI) | payer OTHER, SELFPAY ==
[2021-10-23 16:27] LABS: Absolute Lymphocyte Count 1.08 X10^3/uL (0.83-4.51); Basophil# 0.05 X10^3/uL; Basophil% 0.6 % (0-1); Eosinophils% 3.6 % (0-5); Hematocrit 42.2 % (40-54); Lymphocyte # 1.08 X10^3/ul (0.83-4.51); Mean Corp Hgb Conc 33.2 g/dL (32-36); Mean Corpuscular Hgb 31.4 pg (27.0-32.0); Mean Corpuscular Volume 94.6 fL (80-94); Monocyte# 0.83 X10^3/uL; NRBC Flagged by Analyzer 0 % (0-5); Neutrophil % 72.4 % (47-70); Platelet Count 238 K/mm3 (150-450); RBC Distribution Width CV 13.2 % (11.6-14.6); RBC Distribution Width SD 45.5 fl (35.1-43.9); Red Blood Count 4.46 M/mm3 (4.6-6.2); White Blood Count 8.3 K/mm3 (4.4-11.0)
[2021-10-23 17:03] LABS: ALB/GLOB Ratio 0.9 RATIO (0.9-2.4); AST(SGOT) 15 U/L (15-37); Alanine Aminotransfer ALT/SGPT 34 U/L (16-61); Albumin, Serum 3.5 g/dL (3.2-5.0); Alkaline Phosphatase 112 U/L (45-117); Anion Gap 8 (5-15); BUN 12 mg/dL (7-18); BUN/Creat Ratio 16.2 RATIO (10-20); Calcium,Total 9.6 mg/dL (8.5-10.1); Chloride 101 mmol/L (98-107); Creatinine, Serum 0.74 mg/dL (0.70-1.30); EST Glomerular Filtration Rate 109 mL/min (>60); Est Glom Filt Rate - Afr Amer 132 mL/min (>60); Globulin 3.9 g/dL (2.2-4.2); Glucose 128 mg/dL (74-106); Potassium 3.6 mmol/L (3.5-5.1); Protein, Total 7.4 g/dL (6.4-8.2); Sodium Level 141 mmol/L (136-145); Thyroid Stim Hormone (TSH) 1.59 uIU/mL (0.358-3.74)
== END ==
PROVIDERS: PCP Family Medicine Geriatric Medicine; Visit Provider Family Medicine Geriatric Medicine
DX: E55.9 Vitamin D deficiency, unspecified (principal); I10 Essential (primary) hypertension
CPT/HCPCS: 36415; 80053; 82306; 84443; 85025

== ENCOUNTER 2022-02-28 14:53 | Outpatient (CLI) | payer OTHER, SELFPAY ==
[2022-02-28 16:43] LABS: Absolute Lymphocyte Count 1.18 X10^3/uL (0.83-4.51); Absolute Neutrophil Count 4.9 X10^3/uL (2.0-7.7); Basophil# 0.05 X10^3/uL; Basophil% 0.7 % (0-1); Eosinophil# 0.31 X10^3/uL; Eosinophils% 4.2 % (0-5); Hematocrit 42.2 % (40-54); Hemoglobin 13.4 g/dL (13.0-16.5); Lymphocyte # 1.18 X10^3/ul (0.83-4.51); Lymphocyte % 16.1 % (19-41); Mean Corp Hgb Conc 31.8 g/dL (32-36); Mean Corpuscular Hgb 30.5 pg (27.0-32.0); Mean Corpuscular Volume 96.1 fL (80-94); Mean Platelet Vol. 10.2 fl (6.2-12.0); Monocyte# 0.87 X10^3/uL; Monocyte% 11.9 % (0-10); NRBC Flagged by Analyzer 0 % (0-5); Neutrophil # 4.89 X10^3/uL (2.7-7.7); Neutrophil % 66.7 % (47-70); Platelet Count 263 K/mm3 (150-450); RBC Distribution Width SD 46.2 fl (35.1-43.9); Red Blood Count 4.39 M/mm3 (4.6-6.2); White Blood Count 7.3 K/mm3 (4.4-11.0)
[2022-02-28 16:52] LABS: Vitamin D,25 Hydroxy 16.2 ng/mL
[2022-02-28 16:58] LABS: AST(SGOT) 21 U/L (15-37); Alanine Aminotransfer ALT/SGPT 38 U/L (16-61); Albumin, Serum 3.7 g/dL (3.2-5.0); Alkaline Phosphatase 106 U/L (45-117); Anion Gap 1 (5-15); BUN 14 mg/dL (7-18); BUN/Creat Ratio 17.3 RATIO (10-20); Calcium,Total 9.2 mg/dL (8.5-10.1); Chloride 102 mmol/L (98-107); Creatinine, Serum 0.81 mg/dL (0.70-1.30); EST Glomerular Filtration Rate 98 mL/min (>60); Est Glom Filt Rate - Afr Amer 119 mL/min (>60); Globulin 3.7 g/dL (2.2-4.2); Glucose 117 mg/dL (74-106); Potassium 4.4 mmol/L (3.5-5.1); Protein, Total 7.4 g/dL (6.4-8.2); Sodium Level 139 mmol/L (136-145); Thyroid Stim Hormone (TSH) 1.15 uIU/mL (0.358-3.74)
== END 2022-02-28 23:59 | disposition home or self-care (01) ==
LOC: POLAB3 14:54
PROVIDERS: PCP Family Medicine Geriatric Medicine; Visit Provider Family Medicine Geriatric Medicine
DX: E55.9 Vitamin D deficiency, unspecified (principal); I10 Essential (primary) hypertension
CPT/HCPCS: 36415; 80053; 82306; 84443; 85025

== ENCOUNTER → 2022-03-13 | Outpatient (CLI) | payer SELFPAY, OTHER ==
--- NOTE | 2022-03-13 12:38 | PFTCOMP ---
COMPLETE PULMONARY FUNCTION TEST INTERPRETATION Brief HPI: Patient is a 76 year old male, currently under the care of Dr. Crain, who presents to [facility] for complete pulmonary function tests secondary to diagnosis of dyspnea. Respiratory therapist reports good effort and reproducible results. Interpretation: Forced expiration spirometry shows a moderately severe large airways obstructive ventilatory defect with an FEV1 of 52% predicted. There is a significant bronchodilator response in FVC by strict ATS criteria. Spirograms are of good quality and plateau slowly, indicating slowly emptying areas of the lungs. The respiratory flow volume loop shows decreased expiratory flow rates at all lung volumes consistent with airway obstruction. Lung volumes by body plethysmography show a normal total lung capacity at 5.95 L, 93% predicted. FRC and RV are elevated out of proportion. Lung volume measurements are consistent with air-trapping. Diffusion capacity by carbon monoxide is preserved at 73% predicted. The airway resistance is significantly elevated. No previous pulmonary function tests were available for review. Impression: Partially reversible moderately severe large airways obstructive ventilatory defect resulting in air trapping, but relatively preserved diffusion capacity, in a pattern consistent with chronic bronchitis
== END | disposition home or self-care (01) ==
LOC: PSN 06:56
PROVIDERS: PCP Family Medicine Geriatric Medicine; Referring Provider Family Medicine Geriatric Medicine; Visit Provider Family Medicine Geriatric Medicine
DX: R06.89 Other abnormalities of breathing (principal)
CPT/HCPCS: 94060; 94726; 94729

== ENCOUNTER → 2022-08-29 | Outpatient (CLI) | payer OTHER, SELFPAY ==
[2022-08-29 17:26] LABS: Absolute Lymphocyte Count 0.97 X10^3/uL (0.83-4.51); Absolute Neutrophil Count 5.7 X10^3/uL (2.0-7.7); Basophil# 0.05 X10^3/uL; Basophil% 0.6 % (0-1); Eosinophil# 0.28 X10^3/uL; Eosinophils% 3.5 % (0-5); Hematocrit 43.3 % (40-54); Hemoglobin 14.2 g/dL (13.0-16.5); Lymphocyte # 0.97 X10^3/ul (0.83-4.51); Lymphocyte % 12.2 % (19-41); Mean Corp Hgb Conc 32.8 g/dL (32-36); Mean Corpuscular Hgb 31.1 pg (27.0-32.0); Mean Platelet Vol. 10.7 fl (6.2-12.0); Monocyte# 0.89 X10^3/uL; Monocyte% 11.2 % (0-10); NRBC Flagged by Analyzer 0 % (0-5); Neutrophil # 5.72 X10^3/uL (2.7-7.7); Neutrophil % 72.1 % (47-70); Platelet Count 241 K/mm3 (150-450); RBC Distribution Width CV 13.3 % (11.6-14.6); RBC Distribution Width SD 46.3 fl (35.1-43.9); Red Blood Count 4.56 M/mm3 (4.6-6.2); White Blood Count 7.9 K/mm3 (4.4-11.0)
[2022-08-29 17:45] LABS: Vitamin D,25 Hydroxy 24.7 ng/mL
[2022-08-29 17:57] LABS: AST(SGOT) 18 U/L (15-37); Alanine Aminotransfer ALT/SGPT 32 U/L (16-61); Albumin, Serum 3.8 g/dL (3.2-5.0); Alkaline Phosphatase 107 U/L (45-117); Anion Gap 5 (5-15); BUN 13 mg/dL (7-18); BUN/Creat Ratio 18.2 RATIO (10-20); Calcium,Total 9.6 mg/dL (8.5-10.1); Chloride 101 mmol/L (98-107); Creatinine, Serum 0.72 mg/dL (0.70-1.30); EST Glomerular Filtration Rate 113 mL/min (>60); Est Glom Filt Rate - Afr Amer 137 mL/min (>60); Globulin 3.9 g/dL (2.2-4.2); Glucose 100 mg/dL (74-106); Potassium 4.2 mmol/L (3.5-5.1); Protein, Total 7.7 g/dL (6.4-8.2); Sodium Level 138 mmol/L (136-145); Thyroid Stim Hormone (TSH) 1.72 uIU/mL (0.358-3.74)
== END | disposition home or self-care (01) ==
LOC: POLAB3 13:56
PROVIDERS: PCP Family Medicine Geriatric Medicine; Visit Provider Family Medicine Geriatric Medicine
DX: E55.9 Vitamin D deficiency, unspecified (principal); I10 Essential (primary) hypertension
CPT/HCPCS: 36415; 80053; 82306; 84443; 85025

== ENCOUNTER → 2023-03-07 | Outpatient (CLI) | payer OTHER, SELFPAY ==
[2023-03-07 16:29] LABS: Absolute Lymphocyte Count 1.16 X10^3/uL (0.83-4.51); Absolute Neutrophil Count 6.6 X10^3/uL (2.0-7.7); Basophil# 0.06 X10^3/uL; Basophil% 0.7 % (0-1); Eosinophil# 0.28 X10^3/uL; Eosinophils% 3.1 % (0-5); Hematocrit 46.1 % (40-54); Hemoglobin 14.5 g/dL (13.0-16.5); Lymphocyte # 1.16 X10^3/ul (0.83-4.51); Lymphocyte % 12.6 % (19-41); Mean Corp Hgb Conc 31.5 g/dL (32-36); Mean Corpuscular Hgb 30.7 pg (27.0-32.0); Mean Corpuscular Volume 97.5 fL (80-94); Mean Platelet Vol. 10.2 fl (6.2-12.0); NRBC Flagged by Analyzer 0 % (0-5); Neutrophil # 6.55 X10^3/uL (2.7-7.7); Neutrophil % 71.3 % (47-70); Platelet Count 253 K/mm3 (150-450); RBC Distribution Width SD 46.6 fl (35.1-43.9); Red Blood Count 4.73 M/mm3 (4.6-6.2); White Blood Count 9.2 K/mm3 (4.4-11.0)
[2023-03-07 17:11] LABS: Vitamin D,25 Hydroxy 21.2 ng/mL
[2023-03-07 17:22] LABS: ALB/GLOB Ratio 0.9 RATIO (0.9-2.4); AST(SGOT) 21 U/L (15-37); Alanine Aminotransfer ALT/SGPT 40 U/L (16-61); Albumin, Serum 3.7 g/dL (3.2-5.0); Alkaline Phosphatase 113 U/L (45-117); Anion Gap 1 (5-15); BUN 19 mg/dL (7-18); BUN/Creat Ratio 21.5 RATIO (10-20); Calcium,Total 9.8 mg/dL (8.5-10.1); Chloride 101 mmol/L (98-107); Creatinine, Serum 0.88 mg/dL (0.70-1.30); EST Glomerular Filtration Rate 89 mL/min (>60); Est Glom Filt Rate - Afr Amer 107 mL/min (>60); Globulin 3.9 g/dL (2.2-4.2); Glucose 98 mg/dL (74-106); Potassium 4.6 mmol/L (3.5-5.1); Protein, Total 7.6 g/dL (6.4-8.2); Sodium Level 135 mmol/L (136-145)
== END | disposition home or self-care (01) ==
LOC: LAB 15:22
PROVIDERS: PCP Family Medicine Geriatric Medicine; Visit Provider Family Medicine Geriatric Medicine
DX: E55.9 Vitamin D deficiency, unspecified (principal); I10 Essential (primary) hypertension
CPT/HCPCS: 36415; 80053; 82306; 84443; 85025

== ENCOUNTER → 2023-09-12 | Outpatient (CLI) | payer OTHER, SELFPAY ==
[2023-09-12 10:07] LABS: Absolute Lymphocyte Count 0.97 X10^3/uL (0.83-4.51); Basophil# 0.05 X10^3/uL; Basophil% 0.6 % (0-1); Eosinophil# 0.23 X10^3/uL; Eosinophils% 2.9 % (0-5); Hematocrit 44.7 % (40-54); Hemoglobin 13.8 g/dL (13.0-16.5); Lymphocyte # 0.97 X10^3/ul (0.83-4.51); Lymphocyte % 12.1 % (19-41); Mean Corp Hgb Conc 30.9 g/dL (32-36); Mean Corpuscular Hgb 29.7 pg (27.0-32.0); Mean Corpuscular Volume 96.1 fL (80-94); Mean Platelet Vol. 9.8 fl (6.2-12.0); Monocyte# 0.74 X10^3/uL; Monocyte% 9.2 % (0-10); NRBC Flagged by Analyzer 0 % (0-5); Neutrophil # 5.98 X10^3/uL (2.7-7.7); Neutrophil % 74.6 % (47-70); Platelet Count 250 K/mm3 (150-450); RBC Distribution Width CV 13.5 % (11.6-14.6); Red Blood Count 4.65 M/mm3 (4.6-6.2)
[2023-09-12 11:06] LABS: Vitamin D,25 Hydroxy 28.2 ng/mL
[2023-09-12 11:16] LABS: AST(SGOT) 14 U/L (15-37); Alanine Aminotransfer ALT/SGPT 26 U/L (16-61); Albumin, Serum 3.7 g/dL (3.2-5.0); Alkaline Phosphatase 119 U/L (45-117); Anion Gap 1 (5-15); BUN 17 mg/dL (7-18); BUN/Creat Ratio 21.9 RATIO (10-20); Calcium,Total 9.3 mg/dL (8.5-10.1); Chloride 100 mmol/L (98-107); Creatinine, Serum 0.78 mg/dL (0.70-1.30); EST Glomerular Filtration Rate 102 mL/min (>60); Est Glom Filt Rate - Afr Amer 124 mL/min (>60); Globulin 3.7 g/dL (2.2-4.2); Glucose 107 mg/dL (74-106); Potassium 4.2 mmol/L (3.5-5.1); Protein, Total 7.4 g/dL (6.4-8.2); Sodium Level 136 mmol/L (136-145); Thyroid Stim Hormone (TSH) 1.32 uIU/mL (0.358-3.74)
== END | disposition home or self-care (01) ==
LOC: POLAB3 09:41
PROVIDERS: PCP Family Medicine Geriatric Medicine; Visit Provider Family Medicine Geriatric Medicine
DX: I10 Essential (primary) hypertension (principal); E55.9 Vitamin D deficiency, unspecified
CPT/HCPCS: 36415; 80053; 82306; 84443; 85025

== ENCOUNTER → 2024-03-19 | Outpatient (CLI) | payer OTHER, SELFPAY ==
[2024-03-19 10:42] LABS: Absolute Lymphocyte Count 0.84 X10^3/uL (0.83-4.51); Absolute Neutrophil Count 5.8 X10^3/uL (2.0-7.7); Basophil# 0.06 X10^3/uL; Basophil% 0.8 % (0-1); Eosinophil# 0.19 X10^3/uL; Eosinophils% 2.4 % (0-5); Hematocrit 42.5 % (40-54); Lymphocyte # 0.84 X10^3/ul (0.83-4.51); Lymphocyte % 10.7 % (19-41); Mean Corp Hgb Conc 32.9 g/dL (32-36); Mean Corpuscular Hgb 30.8 pg (27.0-32.0); Mean Corpuscular Volume 93.4 fL (80-94); Mean Platelet Vol. 9.7 fl (6.2-12.0); Monocyte# 0.85 X10^3/uL; Monocyte% 10.9 % (0-10); NRBC Flagged by Analyzer 0 % (0-5); Neutrophil # 5.84 X10^3/uL (2.7-7.7); Neutrophil % 74.6 % (47-70); Platelet Count 233 K/mm3 (150-450); RBC Distribution Width CV 13.2 % (11.6-14.6); RBC Distribution Width SD 44.4 fl (35.1-43.9); Red Blood Count 4.55 M/mm3 (4.6-6.2); White Blood Count 7.8 K/mm3 (4.4-11.0)
[2024-03-19 10:49] LABS: Vitamin D,25 Hydroxy 17.3 ng/mL
[2024-03-19 10:51] LABS: ALB/GLOB Ratio 0.9 RATIO (0.9-2.4); AST(SGOT) 18 U/L (15-37); Alanine Aminotransfer ALT/SGPT 35 U/L (16-61); Albumin, Serum 3.6 g/dL (3.2-5.0); Alkaline Phosphatase 103 U/L (45-117); Anion Gap 7 (5-15); BUN 13 mg/dL (7-18); BUN/Creat Ratio 17.7 RATIO (10-20); Calcium,Total 9.4 mg/dL (8.5-10.1); Chloride 99 mmol/L (98-107); Creatinine, Serum 0.74 mg/dL (0.70-1.30); EST Glomerular Filtration Rate 109 mL/min (>60); Est Glom Filt Rate - Afr Amer 132 mL/min (>60); Globulin 3.8 g/dL (2.2-4.2); Glucose 102 mg/dL (74-106); Potassium 4.1 mmol/L (3.5-5.1); Protein, Total 7.4 g/dL (6.4-8.2); Sodium Level 136 mmol/L (136-145); Thyroid Stim Hormone (TSH) 1.49 uIU/mL (0.358-3.74)
== END | disposition home or self-care (01) ==
PROVIDERS: PCP Family Medicine Geriatric Medicine; Visit Provider Family Medicine Geriatric Medicine
DX: I10 Essential (primary) hypertension (principal); E55.9 Vitamin D deficiency, unspecified
CPT/HCPCS: 36415; 80053; 82306; 84443; 85025

== ENCOUNTER → 2024-09-17 | Outpatient (CLI) | payer OTHER, SELFPAY ==
[2024-09-17 09:37] LABS: Absolute Lymphocyte Count 0.92 X10^3/uL (0.83-4.51); Absolute Neutrophil Count 5.4 X10^3/uL (2.0-7.7); Basophil# 0.06 X10^3/uL; Basophil% 0.8 % (0-1); Eosinophil# 0.32 X10^3/uL; Eosinophils% 4.2 % (0-5); Hematocrit 42.3 % (40-54); Hemoglobin 13.8 g/dL (13.0-16.5); Lymphocyte # 0.92 X10^3/ul (0.83-4.51); Lymphocyte % 12.1 % (19-41); Mean Corp Hgb Conc 32.6 g/dL (32-36); Mean Corpuscular Hgb 30.7 pg (27.0-32.0); Monocyte# 0.94 X10^3/uL; Monocyte% 12.3 % (0-10); NRBC Flagged by Analyzer 0 % (0-5); Neutrophil # 5.35 X10^3/uL (2.7-7.7); Neutrophil % 70.2 % (47-70); Platelet Count 224 K/mm3 (150-450); RBC Distribution Width CV 13.3 % (11.6-14.6); RBC Distribution Width SD 45.6 fl (35.1-43.9); White Blood Count 7.6 K/mm3 (4.4-11.0)
[2024-09-17 09:53] LABS: Vitamin D,25 Hydroxy 22.4 ng/mL
[2024-09-17 10:02] LABS: ALB/GLOB Ratio 0.9 RATIO (0.9-2.4); AST(SGOT) 16 U/L (15-37); Alanine Aminotransfer ALT/SGPT 36 U/L (16-61); Albumin, Serum 3.6 g/dL (3.2-5.0); Alkaline Phosphatase 122 U/L (45-117); Anion Gap 6 (5-15); BUN 14 mg/dL (7-18); BUN/Creat Ratio 18.5 RATIO (10-20); Calcium,Total 9.2 mg/dL (8.5-10.1); Chloride 100 mmol/L (98-107); Creatinine, Serum 0.76 mg/dL (0.70-1.30); EST Glomerular Filtration Rate 105 mL/min (>60); Est Glom Filt Rate - Afr Amer 127 mL/min (>60); Globulin 3.8 g/dL (2.2-4.2); Glucose 102 mg/dL (74-106); Potassium 4.3 mmol/L (3.5-5.1); Protein, Total 7.4 g/dL (6.4-8.2); Sodium Level 135 mmol/L (136-145)
--- OUTSIDE RECORDS SUMMARY | 2024-09-17 10:02 | XMS RPT_ITS | CCD ---
Author Organization [facility] Inform ion Partnership [facility] Care Team Providers Care Bread Racker Name Role Phone BANDAR MOTTA Consulting Unavailable ZENIA VITALE Admitting Unavailable ZENIA VITALE Attending Unavailable ZENIA VITALE Primary Care Unavailable PROVIDER, UNKNOWN Consulting Unavailable Problems Problem Classification Problem Date Documented Da te Episodic/Chronic Immunizations and screening for infectious disease (3 sources) Encounter for observation for suspected exposure to other biological agents ruled out; Translations: [Encounter for observation for suspected exposure to other biological agents ruled out] Onset: 06-11-2020 Episodic Results Test Name Value Interpretation Reference Range Facility Monoclonal Protein, Urineon 06-17-2020 Monoclonal Protein, Urine SEE BELOW Normal [facility] Comment on above: Result Comment: UMPA Result SEE BELOW NOMP No M protein is identified. UMPA Staff Review SEE BELOW Reviewed by Becky Foy MD PhD ([id number]) Performing Laboratory: [facility] [employer] [facility] [place] [address] Performed By: #### U IFEX #### [place] [address] Immunofixation Screen, Serum on 06-16-2020 Immunofixation Screen, Serum SEE BELOW Normal [facility] Comment on above: Result Comment: MPA Result SEE BELOW NOMP No M protein is identified. MPA Interpretation SEE BELOW Test Not Indicated Staff Review SEE BELOW Reviewed by Becky Foy MD PhD ([id number]) Performing Laboratory: [facility] [employer] [facility] [place] [address] Performed By: #### I FESX #### [place] [address] Boyds/Lambda,Seron 0 Boyds/Lambda,Ser SEE BELOW Normal [facility] Comment on above: Result Comment: Howard a, Free, Serum 19.1 3.30-19.40 mg/L Test performed by an immunoturbidimetric assay on Optilite instrument from [facility]. Immunoglobulin free light chain assay results should be interpreted in conjunction with other tests and in correlation with clinical picture. Lambda, Free, Serum 15.4 5.7-26.3 mg/L Test performed by an immunoturbidimetric assay on Optilite instrument from [facility]. Immunoglobulin free light chain assay results should be interpreted in conjunction with other tests and in correlation with clinical picture. K/L Ratio, Serum 1.24 0.26-1.65 Performing Laboratory: [facility] [employer] [address] [place] [address] Performed By: #### K ALAX #### [facility] 1 [place], [place] [address] Basic Metabolic Panelon 07- 8-2019 Anion gap [Moles/Vol] 8 mmol/L Low 9-18 [facility] Comment on above: Performed By: #### B MP #### [address] [address] Calcium [Mass/Vol] 9.4 mg/dL Normal 8.5-10.2 [facility] Comment on above: Performed By: #### B MP #### [facility] 1 [place], [place] [address] Chloride [Moles/Vol] 100 mmol/L Normal 97-105 [facility] Comment on above: Performed By: #### B MP #### [address] [address] CO2 [Moles/Vol] 31 mmol/L High 22-30 [facility] Comment on above: Performed By: #### B MP #### [facility] 1 [place], [place] [address] Creatinine [Mass/Vol] 0.70 mg/dL Low 0.73-1.22 [facility] Comment on above: Performed By: #### B MP #### [facility] 1 [place], [place] [address] Glucose [Mass/Vol] 107 mg/dL High 74-99 [facility] Comment on above: Result Comment: The [place] Diabetes Association (ADA) provides guidance for cutoff values for fasting glucose and random glucose. The ADA defines fasting as no caloric intake for at least 8 hours.Fasting plasma glucose results between 100 to 125 mg/dL indicate increased risk for diabetes (prediabetes). Fasting plasma glucose results greater than or equal to 126 mg/dL meet the criteria for diagnosis of diabetes. In the absence of unequivocal hyperglycemia, results should be confirmed by repeat testing. In a patient with classic symptoms of hyperglycemia or hyperglycemic crisis, random plasma glucose results greater than or equal to 200 mg/dL meet the criteria for diagnosis of diabetes. Reference: Standards of Medical Care in Diabetes 2016; [place] Diabetes Association. Diabetes Care. 2016;39(Suppl 1). Performed By: #### B MP #### [facility] 1 [place] [address] Potassium [Moles/Vol] 4.6 mmol/L Normal 3.7-5.1 [facility] Comment on above: Performed By: #### B MP #### [place] [address] Sodium [Moles/Vol] 139 mmol/L Normal 136-144 [facility] Comment on above: Performed By: #### B MP #### [facility] 1 [place] [address] Urea nitrogen [Mass/Vol] 8 mg/dL Low 9-24 [facility] Comment on above: Performed By: #### B MP #### [facility] 1 [place] [address] Hemogram/Diffon 06-14-2020 Abs Immature Grans 0.02 thou/cmm Normal 0.00-0.05 [facility] Comment on above: Performed By: #### C BCD1 #### [facility] 1 [place] [address] Abs Neut (ANC) 6.02 thou/cmm High 1.78-5.38 [facility] Comment on above: Performed By: #### C BCD1 #### [facility] 1 [place], [place] [address] Abs. Baso 0.06 thou/cmm Normal 0.01-0.08 [facility] Comment on above: Performed By: #### C BCD1 #### [facility] 1 [place] [address] Abs. Evans 0.84 thou/cmm High 0.30-0.82 [facility] Comment on above: Performed By: #### C BCD1 #### [facility] 1 [place] [address] Basophils/100 WBC (Bld) 0.7 % Normal [facility] Comment on above: Performed By: #### C BCD1 #### [facility] 1 [place] [address] Eosinophils (Bld) [#/Vol] 0.24 10*3/uL Normal 0.04-0.54 [facility] Comment on above: Performed By: #### C BCD1 #### [facility] 1 [place] [address] Eosinophils/100 WBC (Bld) 2.8 % Normal [facility] Comment on above: Performed By: #### C BCD1 #### [facility] 1 [place] [address] Erythrocyte distribution width (RBC) [Ratio] 13.0 % Normal 11.6-14.4 [facility] Comment on above: Performed By: #### C BCD1 #### [facility] 1 [place] [address] Hematocrit (Bld) [Volume fraction] 47.8 % Normal 40.1-51.0 [facility] Comment on above: Performed By: #### C BCD1 #### [facility] 1 [place] [address] Hemoglobin (Bld) [Mass/Vol] 15.5 g/dL Normal 13.7-17.5 [facility] Comment on above: Performed By: #### C BCD1 #### [facility] 1 [place] [address] Immature Grans 0.20 % Normal [facility] [place] Comment on above: Performed By: #### C BCD1 #### [facility] 1 [place] [address] Lymphocytes (Bld) [#/Vol] 1.37 10*3/uL Normal 0.84-2.85 [facility] Comment on above: Performed By: #### C BCD1 #### [facility] 1 [place], [place] [address] Lymphocytes/100 WBC (Bld) 16.0 % Normal [facility] Comment on above: Performed By: #### C BCD1 #### [facility] 1 [place], [place] [address] MCH (RBC) [Entitic mass] 30.3 pg Normal 25.7-32.2 [facility] Comment on above: Performed By: #### C BCD1 #### [facility] 1 [place], [place] [address] MCHC 32.4 % Normal 32.3-36.5 [facility] Comment on above: Performed By: #### C BCD1 #### [facility] 1 [place] [address] MCV (RBC) [Entitic vol] 93.5 fL Normal 83.2-95.6 [facility] Comment on above: Performed By: #### C BCD1 #### [facility] 1 [place], [place] [address] Monocytes/100 WBC (Bld) 9.8 % Normal [facility] Comment on above: Performed By: #### C BCD1 #### [facility] 1 [place] [address] Platelet mean volume (Bld) [Entitic vol] 10.1 fL Normal 8.7-12.0 [facility] Comment on above: Performed By: #### C BCD1 #### [facility] 1 [place], [place] [address] Platelets (Bld) [#/Vol] 242 10*3/uL Normal 141-365 [facility] Comment on above: Performed By: #### C BCD1 #### [facility] 1 [place], [place] [address] RBC 5.11 mil/cmm Normal 4.63-6.08 [facility] Comment on above: Performed By: #### C BCD1 #### [facility] 1 [place] [address] RDW SD 44.6 fl Normal 36.1-45.8 [facility] Comment on above: Performed By: #### C BCD1 #### [facility] 1 [place], [place] [address] Seg Neutrophil 70.5 % Normal [facility] [place] Comment on above: Performed By: #### C BCD1 #### [facility] 1 [place], [place] [address] WBC (Bld) [#/Vol] 8.54 10*3/uL Normal 4.23-9.07 [facility] Comment on above: Performed By: #### C BCD1 #### [facility] 1 [place] [id number] MDRD GFRon 06-14-2020 GFR/1.73 sq M.predicted among non-blacks MDRD (S/P/Bld) [Vol rate/Area] mL/min/{1.73_m2} Normal >60mL/min/1.73 m2 [facility] Comment on above: Result Comment: If t he patient is , multiply the result by 1.210. Performed By: #### G FR #### [facility] 1 [place] [id number] N-terminal Pro-BNPon 020 Natriuretic peptide B (Bld) [Mass/Vol] 920 pg/mL High 0-449 [facility] Comment on above: Result Comment: Belia ents taking a biotin dose of up to 5 mg/day should refrain from taking biotin for 4 hours prior to sample collection. Patients taking a biotin dose of 5 to 10 mg/day should refrain from taking biotin for 8 hours prior to sample collection. Patients taking a biotin dose > 10 mg/day should consult with their physician or the laboratory prior to having a sample taken. Clinicians should consider biotin interference as a source of error, when clinically suspicious of the laboratory result. Performed By: #### P BNP #### [facility] 1 [place] [id number] NURSING PROGon 06-14-2020 NURSING PROG HNO ID: [id number] Author: Rubi (Rn) ERIKA Esteves Service: ? Author Type: Registered Nurse Type: Nursing Progress Note Filed: 06/14/2020 10:57 AM Note Text: Urine spec sent to lab Normal [facility] NURSING PROG HNO ID: [id number] Author: Rubi (Rn) ERIKA Esteves Service: ? Author Type: Registered Nurse Type: Nursing Progress Note Filed: 06/14/2020 10:34 AM Note Text: Additional blood work sent to lab. Pt aware of needed urine spec Normal [facility] PROCEDUREon 06-14-2020 PROCEDURE HNO ID: [id number] Author: Zenia Vitale Service: Interventional Cardiology Author Type: Physician Type: Procedures Filed: 06/14/2020 10:27 AM Note Text: LEFT HEART CATHETERIZATION PROCEDURE NOTE Surgery/Procedure Date: 06/14/2020 Referring Physician: Clinical History: This is a 75 year old male with exertional shortness of breath and possible amyloid suggestive by echo for cath Consent: Informed consent was obtained after the risks, benefits, and alternatives to and of this procedure were discussed in detail with the patient. Procedure in Detail: The patient was brought to the cardiac catheterization laboratory, prepped and draped in the usual sterile fashion. Anxiolysis was achieved with intravenous and intravenous benadryl. Local anesthesia was achieved over the wrist with 1% lidocaine. A pre-flushed 6-Uzbek sheath was inserted into the Right radial artery via the Seldinger technique without complications. Retrograde percutaneous diagnostic coronary angiography and left ventriculography were performed using a Lorenzo left 4 catheter, a 3-D RC catheter, and an angled pigtail catheter. There were no complications of the procedure. Findings: Angiography: LEFT MAIN: Normal LEFT CIRCUMFLEX: Ostial OM1 severe 90% calcified lesion LEFT ANTERIOR DESCENDING: Normal RIGHT CORONARY ARTERY: Severe ostial to proximal RCA . Large dominant vessel. LEFT VENTRICULOGRAPHY: Normal LV size and function . LVEF=60% At this point, the procedure was terminated. All diagnostic wires and catheters were removed. Recommendations: 1. Daily aspirin indefinitely 2. Add coreg for better blood pressure control 3. Statin use 4. Secondary cardiac prevention measures. 5. Cardiac amyloid orders. 6. Planned PTCA RCA and OM . SIGNATURE: Zenia Vitale MD PATIENT NAME: Morales Nichols DATE: June 14, 2020 TIME: 10:24 AM Normal [facility] Troponin T, High Sens.on Troponin T, High Sens. 14 ng/L High 0-11 [facility] Comment on above: Result Comment: Belia ents taking a biotin dose of up to 5 mg/day should refrain from taking biotin for 4 hours prior to sample collection. Patients taking a biotin dose of 5 to 10 mg/day should refrain from taking biotin for 8 hours prior to sample collection. Patients taking a biotin dose > 10 mg/day should consult with their physician or the laboratory prior to having a sample taken. Clinicians should consider biotin interference as a source of error, when clinically suspicious of the laboratory result. Performed By: #### T ROPT #### [address] [address] Urine Protein/Creatinine Rat ioon 06-14-2020 Creatinine, Urine 40.6 mg/dL Low 46.8-314.5 [facility] Comment on above: Performed By: #### U PCRR #### [address] [address] Prot/Creat Ratio 172.4 mg/g Abnormal < 150 [facility] Comment on above: Result Comment: Adul t Male & female Nephrotic criteria: <150 mg/g is considered normal to mildly increased 150-500 mg/g is considered moderately increased >500 mg/g is considered severely increased >3500 mg/g is considered ?nephrotic range? Reference: KDIGO. (2013). KDIGO 2012 Clinical Practice Guideline for the Evaluation and Management of Chronic Kidney Disease. Official Journal of the International Society of Nephrology, 3(1), 1-150. Performed By: #### U PCRR #### [facility] 1 [place], [place] [address] Protein Ql (U) 7.0 mg/dL Normal 0.0-20.0 [facility] [place] Comment on above: Performed By: #### U PCRR #### [address] [address] CORONAVIRUS PCR [CCL]on 05-19 COVID 19 Result MANAGER AGENCY Negative Normal [facility] Comment on above: Result Comment: Nega tive for COVID19 (SARS CoV2) by PCR. This test was developed and its performance characteristics determined by [facility] [place]. This test has been authorized by FDA under an Emergency Use Authorization (EUA). This test has been validated in accordance with the FDA's Guidance Document Policy for Diagnostics Testing in Laboratories Certified to Perform High Complexity Testing under CLIA prior to Emergency use Authorization for Coronavirus Disease 2019 during the Public Health Emergency issued on January 16, 2020. [place] [id number] [place] [address] Manan Gómez III, M.D. [id number] Performed By: #### 2 [address]903 #### [place] [address] COVID 19 Source MANAGER AGENCY NASAL SWAB Normal [facility] Comment on above: Performed By: #### 2 40467 #### [facility],[address] [place], [place] [id number] Hiram 06-10-2020 CNPN Telephone (HEAVEN) -------- MORALES NICHOLS ([id number]) 1945 M Date Time Provider Department 06/10/20 ZENIA VITALE During your visit today, we recorded the following information about you: Gayathri Aiken, RN, RN 06/10/2020 4:08 PM Signed [employer] calls to report abnormal cardiac cath technician reading. States pt wore monitor from 05/30-06/03. Pt had 2 episodes of vtach, longest lasting 11 beats with an average HR of 156. Notes pt also had 5 episodes of SVT. [employer] will get results processed. Deepika Rose, RN, RN 06/28/2020 2:57 PM Signed Schedule [facility] for 06/18/[address] Winifred Rodas [facility] 07/12/2020 12:25 PM Signed Daughter called today to cancelled Mr. Nichols's PCI for 07/19/2020. She will call back to reschedule. Ana Braga, RN, RN 07/18/2020 9:[address] Vitale, pt. cancelled. FYI. Ana Braga RN Allergies As of Date: 06/10/2020 (No Known Allergies) Date Reviewed: 06/07/2020 Reviewed by: Pete Bernal - Fully Assessed Reason for Visit: Abnormal Mold Unloader Reading [Other] Prescriptions as of 06/10/2020 Sig: ASPIR-81 ORAL Take 81 mg by mouth one time * MEMANTINE 5 MG-10 MG TABLETS * Take by mouth as directed. CITALOPRAM 20 MG TABLET Take 20 mg by mouth once franck* PRESERVISION LUTEIN ORAL Take by mouth. PERFLUTREN LIPID MICROSPHERES* Inject 1.3 mL intravenously a* Patient not taking: Reported on 06/07/2020 LISINOPRIL 10 MG TABLET Take 1 tablet by mouth once d* X LOVASTATIN 40 MG TABLET Take 1 tablet by mouth daily * OMEGA-3 FATTY ACIDS 500 MG CA* Take by mouth once daily. Problem List As Of Date 06/10/2020 Noted Resolved Essential hypertension [I10] 03/15/2006 Hyperlipidemia, unspecified [E78.5] 03/15/2006 HYPERTROPHY PROSTATE W/O OBST [N40.0] 03/15/2006 HYPERGLYCEMIA [R79.89] 09/13/2006 PERS HX TOBACCO USE [Z87.891] 03/07/2007 PROSTATIC DISORDER NOS [N42.9] 09/11/2007 OVERWEIGHT [E66.9] 03/12/2008 Fracture [T14.8XXA] 08/03/2010 More... SOB (shortness of breath) [R06.02] 05/30/2020 Encounter Status:Closed by ROBERT COLLAZO MA on 07/26/20 [facility] HOSPon 05-31-2020 HOSP Patient:Rock Nichols MRN: Height:5' 10 (1.778 m) Weight:204 lb 9.4 oz (92.8 kg) Outpatient Medications as of 06/14/20: aspirin (ASPIR-81 ORAL) Memantine HCl tablet pack citalopram (CELEXA) 20 mg tablet vit C/vit E ac/lut/copper/zinc (PRESERVISION LUTEIN ORAL) perflutren lipid microspheres (DEFINITY) 1.1 mg/mL injection (to be provided with echo procedure) lisinopril (ZESTRIL, PRINIVIL) 10 mg tablet [place]-3 Fatty Acids (FISH OIL) 500 mg cap Admission/Clinic Administered Medications as of 06/14/20: heparin 1,000 Units in D5W 250 mL heparin 3,000 Units in NaCl 0.9% 500 mL irrigation Problem List: Essential hypertension [I10] Hyperlipidemia, unspecified [E78.5] Hypertrophy of prostate without urinary obstruction and other lower urinary tract symptoms (LUTS) [N40.0] HYPERGLYCEMIA [R79.89] Personal history of tobacco use, presenting hazards to health [Z87.891] Unspecified disorder of prostate [N42.9] OVERWEIGHT [E66.9] Fracture [T14.8XXA] SOB (shortness of breath) [R06.02] Allergies: No Known Allergies Date Verified:06/14/20 Lab Values Lab Value Units Date High Low POTA* 4.6 mmol/L 06/14/2020 5.1 3.7 WAGNER* 47.8 % 06/14/2020 51.0 40.1 Progress Notes ([facility]): Gayathri Aiken, RN, RN 06/10/2020 4:08 PM Signed [employer] calls to report abnormal cardiac cath technician reading. States pt wore monitor from 05/30-06/03. Pt had 2 episodes of vtach, longest lasting 11 beats with an average HR of 156. Notes pt also had 5 episodes of SVT. [employer] will get results processed. Progress Notes [facility] Pete Bernal MD 06/08/2020 9:28 AM Signed ASSESSMENT/PLAN: 1. Combined forms of age-related cataract of right eye - ICD9: 366.19, ICD10: H25.811 (primary diagnosis) 2. Combined forms of age-related cataract of left eye - ICD9: 366.19, ICD10: H25.812 - IOL BIOMETRY W/ IOL CALC OU (BOTH EYES) Begin: Systane Complete 1 drop in both eyes three times daily Plan to schedule cataract surgery of the right eye at [facility] once patient is stable with Cardiology care. Patient Education on Femtosecond Laser Assisted Cataract Surgery vs. Traditional Cataract Surgery; advised patient to proceed with traditional cataract surgery and to follow with Dr. Iqbal post-operatively for distance lenses. 3. Nonexudative age-related macular degeneration, bilateral, intermediate dry stage - ICD9: 362.51, ICD10: H35.3132 Please monitor each eye daily with Amsler Grid. AREDS 2 Vitamins are available over the counter at any drug store. 4. Bradycardia - ICD9: 427.89, ICD10: R00.1 Patient is scheduled on 06-14-2020 for a heart cath. 5. Essential hypertension - ICD9: 401.9, ICD10: I10 Continue care with your primary care provider as directed. Pete Bernal MD I have confirmed and edited as necessary the relevant ophthalmic history, review of systems, surgical history, and ophthalmological examination findings as obtained by the ophthalmic technical staff. I have seen and examined Morales Dustin Nichols. I have discussed the examination findings, diagnosis, and treatment options with Morales Chan Marla and/or his family. I have also reviewed and agree with the assessment and plan as stated above and agree with all its relevant components. I gave the patient the opportunity to ask questions about the findings, diagnosis, and treatment options. Pete Bernal MD 06/07/2020 8:41 AM Signed Begin: Systane Complete 1 drop in both eyes three times daily Plan to schedule cataract surgery of the right eye at [facility]. Please monitor each eye daily with Amsler Grid. AREDS 2 Vitamins are available over the counter at any drug store. If you have any questions please contact our office at [phone]. After office hours or on the weekend, please call the telephone answering service operator at [facility] ([phone]) and page Dr. Bernal. Normal [facility] Hiram 05-30-2020 [facility] Telephone ([facility]) -------- MORALES NICHOLS ([id number]) 1945 M Date Time Provider Department 05/30/20 ZENIA VITALE During your visit today, we recorded the following information about you: Nara Rodas [facility] 05/30/2020 10:13 AM Signed Schedule [facility] 06/14/[address] Winifred Collazo Ma 05/30/2020 4:06 PM Signed Patient's daughter given date and instructions (see letter). COVID ordered and instructed to get within 72 hours. Instructions, order, and OV follow up mailed to patient. Robert Collazo Ma Allergies As of Date: 05/30/2020 (No Known Allergies) Date Reviewed: 05/30/2020 Reviewed by: Zenia Vitale - Fully Assessed Reason for Visit: cardiac cath [Other] Primary Visit Diagnosis:Pre-op testing [Z01.818] Order(s):PRE-PROCEDURE AND PRE-OPERATIVE COVID [SQPOCOVD] Order #: [id number] 2018 CORONAVIRUS [SQCOVID] Order #: [id number] Prescriptions as of 05/30/2020 Sig: MEMANTINE 5 MG-10 MG TABLETS * Take by mouth as directed. CITALOPRAM 20 MG TABLET Take 20 mg by mouth once franck* PRESERVISION LUTEIN ORAL Take by mouth. PERFLUTREN LIPID MICROSPHERES* Inject 1.3 mL intravenously a* Patient not taking: Reported on 06/07/2020 LISINOPRIL 10 MG TABLET Take 1 tablet by mouth once d* X LOVASTATIN 40 MG TABLET Take 1 tablet by mouth daily * OMEGA-3 FATTY ACIDS 500 MG CA* Take by mouth once daily. 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 SOB (shortness of breath) [R06.02] 05/30/2020 Letter Text Encounter Status:Closed by ROBERT COLLAZO MA on 06/14/20 Normal [facility] Encounters Encounter Date Encounter Type Care Provider Facility Start: 06-11-2020 End: 06-11-2020 Patient encounter procedure BANDAR ERI [facility] Progress note 04-27-2021 Note Date & Type Note Facility 04-27-2021 Note HNO ID: [id number] Author: Dafne Huynh LPN Service: ? Author Type: ? Type: Progress Notes Filed: 04/27/2021 2:54 PM Note Text: POPULATION HEALTH NAVIGATION OUTREACH Action/FYI HTN - Spoke to patients daughter. Patient is no longer seeing Dr. Motta. He has been dx with Dementia and is now seeing Dr. Crain and Dr. Roberson for his heart. Chart updated Contact made with patient or family member? YES Pt identified by name and : YES Outreach Outcome/Action Spoke to patient or caregiver: PCP confirmed / updated Reason for Outreach Care Gap or Scheduling/Wellness visits Payer: Payor: [employer] SELF PAY / Plan: [employer] PAY GENERIC / Product Type: Other / Care Gap Reviewed:: Controlling Blood Pressure Reminder: Reminder note to check Health Maintenance for items below Health Maintenance items due: COVID-19 VACCINE(1) Never done HEPATITIS C SCREENING Never done BP CONTROLLED (<130/80) Never done DTAP,TDAP,TD(1 - Tdap) Never done SHINGRIX VACCINE(1 of 2) Never done ADVANCE DIRECTIVE DISCUSSION Never done LDL CHOLESTEROL due on 12/23/2019 DEPRESSION SCREENING due on 12/23/2019 ANNUAL PCP TEAM CHRONIC DISEASE VISIT due on 01/30/2020 Advanced Directives Completed: Have you ever planned for future healthcare decisions with a power of patent prosecution attorney, living will, or advance directives? No. Are you interested in a follow-up phone call or visit with a doctor for more information about planning for future health care decisions? No Referrals: N/A Message Sent to Practice: NO Navigation Signature: Dafne Huynh LPN April 27, 2021 2:51 PM [facility] Clinical Note 04-27-2021 Note Date & Type Note Facility 04-27-2021 Note Patient Outreach (IN TMWS) MORALES NICHOLS ([id number]) 1945 M Date Time Provider Department 04/27/21 [facility]AND[facility] MOTTA During your visit today, we recorded the following information about you: Dafne Huynh LPN 04/27/2021 2:54 PM Signed POPULATION HEALTH NAVIGATION OUTREACH Action/CELESTEI HTN - Spoke to patients daughter. Patient is no longer seeing Dr. Motta. He has been dx with Dementia and is now seeing Dr. Crain and Dr. Roberson for his heart. Chart updated Contact made with patient or family member? YES Pt identified by name and : YES Outreach Outcome/Action Spoke to patient or caregiver: PCP confirmed / updated Reason for Outreach Care Gap or Scheduling/Wellness visits Payer: Payor: [employer] SELF PAY / Plan: [employer] SELF PAY GENERIC / Product Type: Other / Care Gap Reviewed:: Controlling Blood Pressure Reminder: Reminder note to check Health Maintenance for items below Health Maintenance items due: COVID-19 VACCINE(1) Never done HEPATITIS C SCREENING Never done BP CONTROLLED (<130/80) Never done DTAP,TDAP,TD(1 - Tdap) Never done SHINGRIX VACCINE(1 of 2) Never done ADVANCE DIRECTIVE DISCUSSION Never done LDL CHOLESTEROL due on 12/23/2019 DEPRESSION SCREENING due on 12/23/2019 ANNUAL PCP TEAM CHRONIC DISEASE VISIT due on 01/30/2020 Advanced Directives Completed: Have you ever planned for future healthcare decisions with a power of patent prosecution attorney, living will, or advance directives? No. Are you interested in a follow-up phone call or visit with a doctor for more information about planning for future health care decisions? No Referrals: N/A Message Sent to Practice: NO Navigation Signature: Dafne Huynh LPN April 27, 2021 2:51 PM Allergies As of Date: 04/27/2021 (No Known Allergies) Date Reviewed: 06/27/2020 Reviewed by: Zenia Vitale - Fully Assessed Reason for Visit: Appointment [[id number]] Prescriptions as of 04/27/2021 Sig: CLOPIDOGREL 75 MG TABLET Take 1 tablet by mouth once d* CARVEDILOL 6.25 MG TABLET Take 1 tablet by mouth twice * MEMANTINE 5 MG-10 MG TABLETS * Take by mouth as directed. CITALOPRAM 20 MG TABLET Take 20 mg by mouth once franck* PRESERVISION LUTEIN ORAL Take by mouth. PERFLUTREN LIPID MICROSPHERES* Inject 1.3 mL intravenously a* Patient not taking: Reported on 06/07/2020 LISINOPRIL 10 MG TABLET Take 1 tablet by mouth once d* OMEGA-3 FATTY ACIDS 500 MG CA* Take by mouth once daily. 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 Summary Purpose Family History No Family History Records FoundNo Family History Records FoundNo Family History Records FoundNo Family History Records FoundNo Family History Records Found Advance Directives No Advanced Directives Records FoundNo Advanced Directives Records FoundNo Advanced Directives Records FoundNo Advanced Directives Records FoundNo Advanced Directives Records Found Additional Source Comments (unrecognized sect ion and content) No Status Records FoundNo Status Records FoundNo Status Records FoundNo Status Records FoundNo Status Records Found INFORMATION SOURCE (unrecogn ized section and content) DATE CREATED AUTHOR 06/15/2020 [facility] DATE CREATED AUTHOR AUTHOR'S ORGANIZ ATION [facility]/18/[facility] DATE CREATED AUTHOR AUTHOR'S ORGANIZ ATION 07/26/2020 [facility] DATE CREATED AUTHOR AUTHOR'S ORGANANTOHNY ATION 04/29/2021 [facility] DATE CREATED AUTHOR AUTHOR'S ORGANANTHONY ATION 01/10/2022 [facility] FOR RECORDS PERTAINING TO PATIENTS WHO ARE OR HAVE BEEN ENROLLED IN A CHEMICAL DEPENDENCY/SUBSTANCEABUSE PROGRAM, SOME INFORMATION MAY BE OMITTED. This clinical summary was aggregated from multiple sources. Caution should be exercised in using it in the provision of clinical care. This summary normalizes information from multiple sources, and as a consequence, information in this document may materially change the coding, format and clinical context of patient data. In addition, data may be omitted in some cases. CLINICAL DECISIONS SHOULD BE BASED ON THE PRIMARY CLINICAL RECORDS. [employer] provides no warranty or guarantee of the accuracy or completeness of information in this document.
== END | disposition home or self-care (01) ==
LOC: POLAB3 09:16
PROVIDERS: PCP Family Medicine Geriatric Medicine; Visit Provider Family Medicine Geriatric Medicine
DX: I10 Essential (primary) hypertension (principal); E55.9 Vitamin D deficiency, unspecified
CPT/HCPCS: 36415; 80053; 82306; 84443; 85025

== ENCOUNTER → 2025-03-25 | Outpatient (CLI) | payer OTHER, SELFPAY ==
[2025-03-25 10:53] LABS: Absolute Lymphocyte Count 0.86 X10^3/uL (0.83-4.51); Absolute Neutrophil Count 7.1 X10^3/uL (2.0-7.7); Basophil# 0.06 X10^3/uL; Basophil% 0.7 % (0-1); Eosinophil# 0.14 X10^3/uL; Eosinophils% 1.6 % (0-5); Hematocrit 41.8 % (40-54); Hemoglobin 13.8 g/dL (13.0-16.5); Lymphocyte # 0.86 X10^3/ul (0.83-4.51); Lymphocyte % 9.5 % (19-41); Mean Corpuscular Hgb 30.6 pg (27.0-32.0); Mean Corpuscular Volume 92.7 fL (80-94); Mean Platelet Vol. 9.5 fl (6.2-12.0); Monocyte# 0.82 X10^3/uL; Monocyte% 9.1 % (0-10); NRBC Flagged by Analyzer 0 % (0-5); Neutrophil # 7.12 X10^3/uL (2.7-7.7); Neutrophil % 78.8 % (47-70); Platelet Count 248 K/mm3 (150-450); RBC Distribution Width SD 44.2 fl (35.1-43.9); Red Blood Count 4.51 M/mm3 (4.6-6.2)
[2025-03-25 12:00] LABS: ALB/GLOB Ratio 1.3 RATIO (0.9-2.4); AST(SGOT) 17 U/L (<=37); Alanine Aminotransfer ALT/SGPT 16 U/L (<=46); Albumin, Serum 4.1 g/dL (3.4-4.8); Alkaline Phosphatase 116 U/L (40-129); Anion Gap 12 (5-15); BUN 9 mg/dL (4-19); BUN/Creat Ratio 14.3 RATIO (10-20); Calcium,Total 9.6 mg/dL (7.6-11.0); Carbon Dioxide 27.6 mmol/L (21.0-32.0); Chloride 99 mmol/L (98-108); Creatinine, Serum 0.66 mg/dL (0.70-1.20); EST Glomerular Filtration Rate 95 (>60); Globulin 3.1 g/dL (2.2-4.2); Glucose 99 mg/dL (70-99); Potassium 4.5 mmol/L (3.3-5.1); Protein, Total 7.1 g/dL (5.9-8.4); Sodium Level 138 mmol/L (133-145); Total Bilirubin 0.68 mg/dL (0.00-1.30)
== END | disposition home or self-care (01) ==
LOC: LAB 09:40
PROVIDERS: PCP Family Medicine Geriatric Medicine; Referring Provider Family Medicine Geriatric Medicine; Visit Provider Family Medicine Geriatric Medicine
DX: I10 Essential (primary) hypertension (principal); E55.9 Vitamin D deficiency, unspecified
CPT/HCPCS: 36415; 80053; 82306; 84443; 85025

== ENCOUNTER → 2025-09-23 | Outpatient (CLI) | payer OTHER, SELFPAY ==
[2025-09-23 09:42] LABS: Hematocrit 40.0 % (40-54); Hemoglobin 13.6 g/dL (13.0-16.5); Immature Granulocytes Count 0.030 X10^3/uL (0.0-0.0); Mean Corp Hgb Conc 34.0 g/dL (32-36); Mean Corpuscular Volume 92.8 fL (80-94); Mean Platelet Vol. 8.8 fl (6.2-12.0); NRBC Flagged by Analyzer 0 % (0-5); Platelet Count 211 K/mm3 (150-450); RBC Distribution Width CV 13.0 % (11.6-14.6); RBC Distribution Width SD 44.3 fl (35.1-43.9); Red Blood Count 4.31 M/mm3 (4.6-6.2); White Blood Count 8.0 K/mm3 (4.4-11.0)
[2025-09-23 10:37] LABS: AST(SGOT) 19 U/L (<=37); Alanine Aminotransfer ALT/SGPT 18 U/L (<=46); Albumin, Serum 4.0 g/dL (3.4-4.8); Alkaline Phosphatase 112 U/L (40-129); Anion Gap 9 (5-15); BUN 9 mg/dL (4-19); BUN/Creat Ratio 15.3 RATIO (10-20); Calcium,Total 9.3 mg/dL (7.6-11.0); Carbon Dioxide 31.0 mmol/L (21.0-32.0); Chloride 97 mmol/L (98-108); Globulin 2.8 g/dL (2.2-4.2); Glucose 99 mg/dL (70-99); Potassium 4.0 mmol/L (3.3-5.1); Vitamin D,25 Hydroxy 20.8 ng/mL (30-100)
[2025-09-23 17:31] LABS: Xtra Tube Kwok EXTRA TUBE
== END | disposition home or self-care (01) ==
LOC: POLAB3 09:31
PROVIDERS: PCP Family Medicine Geriatric Medicine; Visit Provider Family Medicine Geriatric Medicine
DX: I10 Essential (primary) hypertension (principal); E55.9 Vitamin D deficiency, unspecified
CPT/HCPCS: 36415; 80053; 82306; 84443; 85025